=== PATIENT | male | born 1960 | race Caucasian/White ===

== ENCOUNTER 2023-09-01 17:33 | Outpatient (OUT) | payer BC, SELFPAY ==
[2023-09-01] MEDS: FLU VACC QS 23-24(6MS UP)CEL/PF 60 MCG/0.5 ML SYRINGE IM (17:33)
[2023-09-01] MEDS: COVID VAC 23-24(12UP)MODERNA/PF 50 MCG/0.5 ML VIAL IM (18:00)
== END 2023-09-01 17:34 | disposition home or self-care (01) ==
LOC: VACCLI 17:39
PROVIDERS: PCP Internal Medicine
DX: Z23 Encounter for immunization (principal)
CPT/HCPCS: 90674; 91322; G0008

== ENCOUNTER 2023-10-06 13:11 | Outpatient (OUT) | payer BC, SELFPAY ==
[2023-10-06 13:34] LABS: Basophils Absolute Auto 0.1 10^3/uL (0.0-0.1); Eosinophils Absolute Auto 0.2 10^3/uL (0.0-0.7); Eosinophils Percent Auto 2.9 % (0.9-7.0); Hematocrit 42.5 % (42.0-54.0); Hemoglobin 13.7 g/dL (14.0-18.0); Immature Granulocytes Abs Auto 0.01 10^3/uL (0.00-0.03); Immature Granulocytes Pct Auto 0.1 % (0.0-0.5); Lymphocytes Absolute Auto 1.4 10^3/uL (1.2-3.8); Lymphocytes Percent Auto 19.7 % (20.5-60.0); Mean Corpuscular HGB Conc 32.2 g/dL (29.9-35.2); Mean Corpuscular Hemoglobin 27.7 pg (25.9-34.0); Mean Corpuscular Volume 85.9 fL (80.0-94.0); Mean Platelet Volume 11.7 fL (9.5-13.5); Monocytes Absolute Auto 0.5 10^3/uL (0.3-0.8); Monocytes Percent Auto 7.6 % (1.7-12.0); Neutrophils Absolute Auto 4.9 10^3/uL (1.4-6.5); Neutrophils Percent Auto 68.7 % (43.0-75.0); Platelet Count 150 10^3/uL (150-450); Red Blood Count 4.95 10^6/uL (4.70-6.10); Red Cell Distribution Width 15.5 % (11.0-15.0); White Blood Count 7.1 10^3/uL (4.0-11.0)
[2023-10-06 13:54] LABS: Estimated Average Glucose 137 mg/dL; Glycohemoglobin A1C 6.4 % (4.5-6.2)
[2023-10-06 14:04] LABS: Alanine Aminotransferase 29 U/L (16-63); Albumin Globulin Ratio 0.9; Albumin Level 3.5 g/dL (3.4-5.0); Alkaline Phosphatase 59 U/L (46-116); Anion Gap 12.5; Aspartate Amino Transferase 17 U/L (15-37); BUN Creatinine Ratio 15.1; Bilirubin Total 0.5 mg/dL (0.2-1.0); Calcium 8.4 mg/dL (8.5-10.1); Carbon Dioxide 26.7 mmol/L (21.0-32.0); Chloride 106 mmol/L (98-107); Chol HDL Ratio 3.4; Cholesterol 152 mg/dL (<=200); Estimated GFR (African America >60 (>=60); Estimated GFR (Non-African Ame >60 (>=60); Globulin 3.9 g/dL; Glucose 96 mg/dL (74-106); HDL Cholesterol 45 mg/dL (40-60); LDL Cholesterol Calculated 94.2 mg/dL; Potassium 4.2 mmol/L (3.5-5.1); Sodium 141 mmol/L (136-145); Total Protein 7.4 g/dL (6.4-8.2); Triglycerides 64 mg/dL (<=150); VLDL CHOLESTEROL 12.8 mg/dL
[2023-10-06 14:18] LABS: Prostate Specific Antigen Scrn 2.11 ng/mL (<=4.00)
== END 2023-10-06 13:12 | disposition home or self-care (01) ==
PROVIDERS: PCP Internal Medicine; Visit Provider Internal Medicine
DX: Z87.898 Personal history of other specified conditions (principal); Z13.220 Encounter for screening for lipoid disorders; Z86.718 Personal history of other venous thrombosis and embolism; Z12.5 Encounter for screening for malignant neoplasm of prostate
CPT/HCPCS: 36415; 80053; 80061; 83036; 85025; G0103

== ENCOUNTER 2024-06-07 00:35 | Outpatient (RCR) | payer BC, SELFPAY | END 2024-07-06 09:58 | disposition home or self-care (01) | LOC: MM 00:35 | PROVIDERS: PCP Internal Medicine; Visit Provider Internal Medicine | DX: Z51.81 Encounter for therapeutic drug level monitoring (principal); Z79.01 Long term (current) use of anticoagulants; I82.409 Acute embolism and thrombosis of unspecified deep veins of unspecified lower extremity | CPT/HCPCS: 85610 ==

== ENCOUNTER 2024-06-13 16:09 | Outpatient (OUT) | payer BC, SELFPAY ==
--- NOTE | 2024-06-13 | US_ITS ---
The [address] [address] Patient Name: BISHOP RODRIGUEZ MRN: [id number] date: 1960 Sex: M Assigned Patient Location: LAB Current Patient Location: LAB Accession/Order Number: [id number] Exam Date: 06/13/2024 17:07 Report Date: 06/13/2024 18:10 At the request of: JOANNA LAM Procedure: US venous doppler LE BI EXAM: US venous doppler LE BI HISTORY: Lars leg edema R60.0 COMPARISON: None. TECHNIQUE: Multiple sonographic images of the deep veins of both lower extremity is were obtained, supplemented with Doppler. Multiple images were stored for review. FINDINGS: The deep veins of both lower extremities are fairly well-visualized the groin to the mid calf. No filling defect is identified in the deep veins on either side to indicate a thrombus. There is normal compression augmentation of flow bilaterally. US/US venous doppler LE BI IMPRESSION: There is no direct or indirect evidence of deep vein thrombosis in either lower extremity at this time. Electronically authenticated by: KENDALL MCCARTNEY Date: 06/13/2024 18:10
--- OUTSIDE RECORDS SUMMARY | 2024-06-13 16:17 | XMS_ITS | CCD ---
Author Organization [facility] Informat ion [facility] Care Team Providers Care Art Glass Designer Name Role Phone FAWWAD, TOMAS H Attending Unavailable MISC, DR PADILLA Primary Care Unavailable FAWWAD, TOMAS H Admitting Unavailable FAWWAD, TOMAS H Attending Unavailable MISC, DR PADILLA Primary Care Unavailable FAWWAD, TOMAS H Admitting Unavailable FAWWAD, TOMAS H Attending Unavailable MISC, DR PADILLA Primary Care Unavailable FAWWAD, TOMAS H Admitting Unavailable MISC, DR PADILLA Primary Care Unavailable FAWWAD, TOMAS H Admitting Unavailable FAWWAD, TOMAS H Attending Unavailable MISC, DR PADILLA Primary Care Unavailable FAWWAD, TOMAS H Admitting Unavailable FAWWAD, TOMAS H Attending Unavailable MISC, DR PADILLA Primary Care Unavailable FAWWAD, TOMAS H Admitting Unavailable FAWWAD, TOMAS H Attending Unavailable FAWWAD, TOMAS H Admitting Unavailable MISC, DR PADILLA Primary Care Unavailable FAWWAD, TOMAS H Attending Unavailable FAWWAD, TOMAS H Attending Unavailable MISC, DR PADILLA Primary Care Unavailable FAWWAD, TOMAS H Admitting Unavailable HOY .DR MARTIN Attending Unavailable HOY .DR MARTIN Consulting Unavailable HOAntoinette .DR MARTIN Admitting Unavailable MISC, DR PADILLA Primary Care Unavailable MISC, DR PADILLA Primary Care Unavailable FAWWAD, TOMAS H Attending Unavailable FAWWAD, TOMAS H Admitting Unavailable FAWWAD, TOMAS H Attending Unavailable MISC, DR PADILLA Primary Care Unavailable FAWWAD, TOMAS H Admitting Unavailable FAWWAD, TOMAS H Attending Unavailable MISC, DR PADILLA Primary Care Unavailable FAWWAD, TOMAS H Admitting Unavailable FAWWAD, TOMAS Attending Unavailable Problems Problem Classification Problem Date Documented Da te Episodic/Chronic Other aftercare (5 sources) Encounter for therapeutic drug level monitoring; Translations: [ENC THERAPEUTC DRUG LEVL MONITORING] Onset: 03-05-2023 Episodic Other aftercare (1 source) detention (current) use of anticoagulants; Translations: [LONG-TERM CURRNT USE ANTICOAGULANTS] Onset: 04-06-2023 Episodic Phlebitis; thrombophlebitis and thromboembolism (1 source) Chronic embolism and thrombosis of 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; Translations: [CHR EMB THROMB UNS DP VNS LT LW EXT] Onset: 08-09-2022 Chronic Phlebitis; thrombophlebitis and thromboembolism (5 sources) Acute embolism and thrombosis of 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; Translations: [AC EMBO THROMB UNS DP VNS LT LW EXT] Onset: 02-07-2023 Episodic Encounters Encounter Date Encounter Type Care Provider Facility Start: 03-22-2024 End: 03-22-2024 ambulatory SHAIKH XIANG Not Available Start: 03-07-2023 End: 04-06-[address] DOCTOR BRANTLEY Facility:[facility] Start: 02-07-2023 End: 03-04-2023 ambulatory SHAIKH Hayden OTOOLE Facility:H1 Start: 01-05-2023 End: 02-04-2023 ambulatory SHAIKH Hayden OTOOLE Facility:H1 Start: 12-08-2022 End: 01-05-2023 ambulatory SHAIKH Hayden OTOOLE Facility:H1 Start: 11-08-2022 End: 12-08-2022 ambulatory SHAIKH Hayden OTOOLE Facility:H1 Start: 10-07-2022 End: 11-07-2022 ambulatory SHAIKH Hayden OTOOLE Facility:H1 Start: 09-07-2022 End: 10-06-2022 ambulatory SHAIKH Hayden OTOOLE Facility:H1 Start: 08-18-2022 End: 08-18-[address] VERONICA PINEDA . Facility:[facility] Start: 08-08-2022 End: 09-06-[address] DOCTOR BRANTLEY Facility:H1 Start: 07-08-2022 End: 08-07-[address] DOCTOR BRANTLEY Facility:[facility] Start: 06-07-2022 End: 07-07[facility] [facility] Start: 05-07-2022 End: 06-04-2022 ambulatory SHAIKH Hayden OTOOLE Facility:H1 Payers Date Payer Category Payer Unknown 2022 Unknown [id number] 2019 Unknown [id number] 1961 Self-pay [id number] 1961 Self-pay 1960 Unknown [id number] 2.16.84 0.1.927303.3.579.2.593 1960 Unknown [id number] 2.16.84 0.1.446521.3.579.2.593 1958 Unknown [id number] 2.16.84 0.1.485057.3.579.2.593 1958 Unknown [id number] 2.16.84 0.1.260681.3.579.2.593 1958 Unknown [id number] 2.16.84 0.1.770194.3.579.2.593 1958 Unknown [id number] 2.16.84 0.1.844026.3.579.2.593 1958 Unknown [id number] 2.16.84 0.1.058863.3.579.2.593 1958 Unknown [id number] 2.16.84 0.1.720148.3.579.2.593 1958 Unknown [id number] 2.16.84 0.1.832515.3.579.2.593 1958 Unknown [id number] 2.16.84 0.1.318433.3.579.2.593 1958 Unknown [id number] 2.16.84 0.1.621509.3.579.2.593 1958 Unknown [id number] 2.16.84 0.1.732947.3.579.2.1259 Unknown [id number] 2.16.84 0.1.161401.3.579.2.593 Summary Purpose Family History No Family History Records FoundNo Family History Records Found Advance Directives No Advanced Directives Records FoundNo Advanced Directives Records Found Additional Source Comments (unrecognized sect ion and content) No Status Records FoundNo Status Records Found INFORMATION SOURCE (unrecogn ized section and content) DATE CREATED AUTHOR 04/15/2023 [facility] DATE CREATED AUTHOR AUTHOR'S ORGANIZ ATION 03/24/2024 [facility] dical Specialists [facility] FOR RECORDS PERTAINING TO PATIENTS WHO ARE OR HAVE BEEN ENROLLED IN A CHEMICAL DEPENDENCY/SUBSTANCEABUSE PROGRAM, SOME INFORMATION MAY BE OMITTED. This clinical summary was aggregated from multiple sources. Caution should be exercised in using it in the provision of clinical care. This summary normalizes information from multiple sources, and as a consequence, information in this document may materially change the coding, format and clinical context of patient data. In addition, data may be omitted in some cases. CLINICAL DECISIONS SHOULD BE BASED ON THE PRIMARY CLINICAL RECORDS. [facility] [employer] provides no warranty or guarantee of the accuracy or completeness of information in this document.
== END 2024-06-13 16:10 | disposition home or self-care (01) ==
DX: J45.40 Moderate persistent asthma, uncomplicated (principal); I82.402 Acute embolism and thrombosis of 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; E78.5 Hyperlipidemia, unspecified; R73.03 Prediabetes; R60.0 Localized edema
CPT/HCPCS: 36415; 80053; 83036; 85025; 93970

== ENCOUNTER 2024-06-13 16:30 | Outpatient (OUT) | payer BC, SELFPAY ==
--- OUTSIDE RECORDS SUMMARY | 2024-06-13 16:35 | XMS_ITS | CCD ---
Author Organization [facility] Informat ion [facility] Care Team Providers Care Band Straightener Name Role Phone FAWWAD, TOMAS H Attending [...] Onset: 03-05-2023 Episodic Other aftercare (1 source) nursing home (current) use of anticoagulants; Translations: [[facility] CURRNT USE ANTICOAGULANTS] Onset: 04-06-2023 Episodic Phlebitis; [...] Start: 06-07-2022 End: 07-07-[address] [facility] Start: 05-07-2022 End: 06-04-2022 ambulatory SHAIKH Hayden OTOOLE Facility:H1 Payers Date Payer Category Payer Unknown 2022 Unknown [id number] 2019 Unknown [id number] 1961 Self-pay [id number] 1961 Self-pay 1960 Unknown [id number] 2.16.84 0.1.467103.3.579.2.593 1958 Unknown [id number] 2.16.84 0.1.010092.3.579.2.593 1958 Unknown [id number] 2.16.84 0.1.654833.3.579.2.593 1958 Unknown [id number] 2.16.84 0.1.146939.3.579.2.593 1958 Unknown [id number] 2.16.84 0.1.735286.3.579.2.593 1958 Unknown [id number] 2.16.84 0.1.556933.3.579.2.593 1958 Unknown [id number] 2.16.84 0.1.497016.3.579.2.593 1958 Unknown [id number] 2.16.84 0.1.661394.3.579.2.593 1958 Unknown [id number] 2.16.84 0.1.600865.3.579.2.593 1958 Unknown [id number] 2.16.84 0.1.973089.3.579.2.593 1958 Unknown [id number] 2.16.84 0.1.292687.3.579.2.593 1958 Unknown [id number] 2.16.84 0.1.711844.3.579.2.1259 Unknown [id number] 2.16.84 0.1.498187.3.579.2.593 Summary Purpose Family History No Family History Records FoundNo Family History Records Found Advance Directives No Advanced Directives Records FoundNo Advanced Directives Records Found Additional Source Comments (unrecognized sect ion and content) No Status Records FoundNo Status Records Found INFORMATION SOURCE (unrecogn ized section and content) DATE CREATED AUTHOR 04/15/2023 [facility] DATE CREATED AUTHOR AUTHOR'S ORGANIZ ATION 03/24/2024 [facility] dical Specialists [facility] FOR RECORDS PERTAINING TO PATIENTS WHO ARE [...] BE BASED ON THE PRIMARY CLINICAL RECORDS. [facility] [employer] provides no warranty or guarantee of the accuracy or completeness of information in this document.
[2024-06-13 16:43] LABS: Basophils Absolute Auto 0.1 10^3/uL (0.0-0.1); Basophils Percent Auto 0.9 % (0.2-2.0); Eosinophils Absolute Auto 0.3 10^3/uL (0.0-0.7); Eosinophils Percent Auto 3.5 % (0.9-7.0); Hematocrit 41.6 % (42.0-54.0); Hemoglobin 13.1 g/dL (14.0-18.0); Immature Granulocytes Abs Auto 0.01 10^3/uL (0.00-0.03); Immature Granulocytes Pct Auto 0.1 % (0.0-0.5); Lymphocytes Absolute Auto 1.7 10^3/uL (1.2-3.8); Lymphocytes Percent Auto 22.4 % (20.5-60.0); Mean Corpuscular HGB Conc 31.5 g/dL (29.9-35.2); Mean Corpuscular Hemoglobin 26.3 pg (25.9-34.0); Mean Corpuscular Volume 83.5 fL (80.0-94.0); Mean Platelet Volume 13.1 fL (9.5-13.5); Monocytes Absolute Auto 0.6 10^3/uL (0.3-0.8); Monocytes Percent Auto 8.7 % (1.7-12.0); Neutrophils Absolute Auto 4.7 10^3/uL (1.4-6.5); Neutrophils Percent Auto 64.4 % (43.0-75.0); Platelet Count 178 10^3/uL (150-450); Red Blood Count 4.98 10^6/uL (4.70-6.10); Red Cell Distribution Width 16.3 % (11.0-15.0); White Blood Count 7.4 10^3/uL (4.0-11.0)
[2024-06-13 16:58] LABS: Alanine Aminotransferase 23 U/L (16-63); Albumin Globulin Ratio 0.9; Albumin Level 3.4 g/dL (3.4-5.0); Alkaline Phosphatase 66 U/L (46-116); Anion Gap 12.2; Aspartate Amino Transferase 18 U/L (15-37); BUN Creatinine Ratio 15.4; Bilirubin Total 0.5 mg/dL (0.2-1.0); Calcium 8.7 mg/dL (8.5-10.1); Carbon Dioxide 28.1 mmol/L (21.0-32.0); Chloride 103 mmol/L (98-107); Estimated GFR (African America >60 (>=60); Estimated GFR (Non-African Ame >60 (>=60); Glucose 98 mg/dL (74-106); Potassium 4.3 mmol/L (3.5-5.1); Sodium 139 mmol/L (136-145); Total Protein 7.4 g/dL (6.4-8.2)
[2024-06-13 17:06] LABS: Estimated Average Glucose 128 mg/dL; Glycohemoglobin A1C 6.1 % (4.5-6.2)
== END 2024-06-13 16:31 | disposition home or self-care (01) ==
LOC: LAB 16:31
PROVIDERS: Visit Provider Internal Medicine
DX: J45.40 Moderate persistent asthma, uncomplicated (principal); I82.402 Acute embolism and thrombosis of 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; E78.5 Hyperlipidemia, unspecified; R73.03 Prediabetes
CPT/HCPCS: 36415; 80053; 80061; 83036; 85025

== ENCOUNTER 2024-06-15 12:10 | Outpatient (OUT) | payer BC, SELFPAY ==
--- OUTSIDE RECORDS SUMMARY | 2024-06-15 12:21 | XMS_ITS | CCD ---
Author Organization [facility] Informat ion [facility] Care Team Providers Care Molder Apprentice Name Role Phone FAWWAD, TOMAS H Attending [...] source) detention (current) use of anticoagulants; Translations: [SNF CURRNT USE ANTICOAGULANTS] Onset: 04-06-2023 Episodic Phlebitis; [...] Start: 06-07-2022 End: 07-07-[address] [facility] Start: 05-07-2022 End: 06-04-2022 ambulatory SHAIKH Hayden OTOOLE Facility:H1 Payers Date Payer Category Payer Unknown 2022 Unknown [id number] 2019 Unknown [id number] 1961 Self-pay [id number] 1961 Self-pay 1960 Unknown [id number] 2.16.84 0.1.751483.3.579.2.593 1958 Unknown [id number] 2.16.84 0.1.664068.3.579.2.593 1958 Unknown [id number] 2.16.84 0.1.514247.3.579.2.593 1958 Unknown [id number] 2.16.84 0.1.407466.3.579.2.593 1958 Unknown [id number] 2.16.84 0.1.203209.3.579.2.593 1958 Unknown [id number] 2.16.84 0.1.690489.3.579.2.593 1958 Unknown [id number] 2.16.84 0.1.916918.3.579.2.593 1958 Unknown [id number] 2.16.84 0.1.328748.3.579.2.593 1958 Unknown [id number] 2.16.84 0.1.231712.3.579.2.593 1958 Unknown [id number] 2.16.84 0.1.842503.3.579.2.593 1958 Unknown [id number] 2.16.84 0.1.621672.3.579.2.593 1958 Unknown [id number] 2.16.84 0.1.717432.3.579.2.1259 Unknown [id number] 2.16.84 0.1.819103.3.579.2.593 Summary Purpose Family History No Family History Records FoundNo Family History Records Found Advance Directives No Advanced Directives Records FoundNo Advanced Directives Records Found Additional Source Comments (unrecognized sect ion and content) No Status Records FoundNo Status Records Found INFORMATION SOURCE (unrecogn ized section and content) DATE CREATED AUTHOR 04/15/2023 [facility] DATE CREATED AUTHOR AUTHOR'S ORGANIZ ATION 03/24/2024 [facility] dical Specialists [facility] FOR RECORDS PERTAINING TO PATIENTS WHO [...] BE BASED ON THE PRIMARY CLINICAL RECORDS. [facility] [employer] provides no warranty or guarantee of the accuracy or completeness of information in this document.
[2024-06-15 12:53] LABS: Cholesterol 137 mg/dL (<=200); HDL Cholesterol 46 mg/dL (40-60); LDL Cholesterol Calculated 78.4 mg/dL; Triglycerides 63 mg/dL (<=150); VLDL CHOLESTEROL 12.6 mg/dL
== END 2024-06-15 12:11 | disposition home or self-care (01) ==
LOC: LAB 12:11
PROVIDERS: Visit Provider Internal Medicine
DX: J45.40 Moderate persistent asthma, uncomplicated (principal); I82.402 Acute embolism and thrombosis of 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; E78.5 Hyperlipidemia, unspecified; R73.03 Prediabetes
CPT/HCPCS: 36415; 80061

== ENCOUNTER 2024-06-27 11:54 | Outpatient (OUT) | payer BC, SELFPAY ==
--- OUTSIDE RECORDS SUMMARY | 2024-06-27 12:14 | XMS_ITS | CCD ---
Author Organization [facility] Care Team Providers Care Bellows Assembler Name Role Phone FAWWAD, TOMAS H Attending [...] Unavailable FAWWAD, TOMAS H Admitting Unavailable HOY ., DR MARTIN Attending Unavailable HOY ., DR MARTIN Consulting Unavailable HOY ., DR MARTIN Admitting Unavailable MISC, DR PADILLA Primary Care Unavailable MISC, DR PADILLA Primary Care Unavailable FAWWAD, TOMAS H Attending Unavailable FAWWAD, TOMAS H Admitting Unavailable FAWWAD, TOMAS H Attending Unavailable MISC, DR PADILLA Primary Care Unavailable FAWWAD, TOMAS H Admitting Unavailable FAWWAD, TOMAS H Attending Unavailable MISC, DR PADILLA Primary Care Unavailable FAWWAD, TOMAS H Admitting Unavailable FAWWAD, TOMAS Attending Unavailable JOANNA LAM Attending Unavailabl e Problems Problem Classification Problem Date Documented Da te Episodic/Chronic Other aftercare (5 sources) Encounter for therapeutic drug level monitoring; Translations: [ENC THERAPEUTC DRUG LEVL MONITORING] Onset: 03-05-2023 Episodic Other aftercare (1 source) care home (current) use of anticoagulants; Translations: [HALFWAY CURRNT USE ANTICOAGULANTS] Onset: 04-06-2023 Episodic Phlebitis; [...] Date Encounter Type Care Provider Facility Start: 06-13-2024 End: 06-13-2024 ambulatory JOANNA LAM Not Available Start: 03-22-2024 End: 03-22-2024 ambulatory SHAIKH XIANG Not Available Start: 03-07-2023 End: 04-06-[address] DOCTOR BRANTLEY Facility:[facility]1 Start: 02-07-2023 End: 03-04-2023 ambulatory SHAIKH Hayden OTOOLE Facility:H1 Start: 01-05-2023 End: 02-04-2023 ambulatory SHAIKH Hayden OTOOLE Facility:H1 Start: 12-08-2022 End: 01-05-2023 ambulatory H FAABY Facility:H1 Start: 11-08-2022 End: 12-08-2022 ambulatory H XIANG Facility:H1 Start: 10-07-2022 End: 11-07-2022 ambulatory SHAIKH Hayden OTOOLE Facility:H1 Start: 09-07-2022 End: 10-06-2022 ambulatory SHAIKH Hayden OTOOLE Facility:H1 Start: 08-18-2022 End: 08-18-[address] VERONICA PINEDA . Facility:H1 Start: 08-08-2022 End: 09-06-[address] PADILLA MIS Facility:H1 Start: 07-08-2022 End: 08-07-[address] PADILLA MISC Facility:H1 Start: 06-07-2022 End: 07-07-[address] PADILLA MIS Facility:H1 Start: 05-07-2022 End: 06-04-2022 ambulatory SHAIKH Hayden OTOOLE Facility:H1 Payers Date Payer Category Payer Unknown 2022 Unknown [id number] 2019 Unknown [id number] 1961 Self-pay [id number] 1961 Self-pay 1960 Unknown [id number] 2.16.84 0.1.946005.3.579.2.593 1958 Unknown [id number] 2.16.84 0.1.121790.3.579.2.593 1958 Unknown [id number] 2.16.84 0.1.835085.3.579.2.593 1958 Unknown [id number] 2.16.84 0.1.140606.3.579.2.593 1958 Unknown [id number] 2.16.84 0.1.321407.3.579.2.593 1958 Unknown [id number] 2.16.84 0.1.620220.3.579.2.593 1958 Unknown [id number] 2.16.84 0.1.420965.3.579.2.593 1958 Unknown [id number] 2.16.84 0.1.303779.3.579.2.593 1958 Unknown [id number] 2.16.84 0.1.056349.3.579.2.593 1958 Unknown [id number] 2.16.84 0.1.257096.3.579.2.593 1958 Unknown [id number] 2.16.84 0.1.446903.3.579.2.593 1958 Unknown [id number] 2.16.84 0.1.842160.3.579.2.1259 1958 Unknown [id number] 2.16.84 0.1.267160.3.579.2.1259 Unknown [id number] 2.16.84 0.1.700110.3.579.2.593 Summary Purpose Family History No Family History Records FoundNo Family History Records Found Advance Directives No Advanced Directives Records FoundNo Advanced Directives Records Found Additional Source Comments (unrecognized sect ion and content) No Status Records FoundNo Status Records Found INFORMATION SOURCE (unrecogn ized section and content) DATE CREATED AUTHOR 04/15/2023 [facility] DATE CREATED AUTHOR HILDA JUÁREZ 06/16/2024 [facility] dical Specialists [facility] FOR RECORDS PERTAINING TO PATIENTS WHO ARE [...] BE BASED ON THE PRIMARY CLINICAL RECORDS. [facility] [employer] [facility]. provides no warranty or guarantee of the accuracy or completeness of information in this document.
[2024-06-27 12:58] LABS: TSH W/ REFLEX FT4 2.761 uIU/mL (0.358-3.740)
[2024-06-27 13:08] LABS: Percent Iron Saturation 10.9 %
[2024-06-28 05:07] LABS: Transferrin 315 mg/dL (177-329)
== END 2024-06-27 11:55 | disposition home or self-care (01) ==
LOC: LAB 11:55
DX: R60.0 Localized edema (principal); D64.9 Anemia, unspecified
CPT/HCPCS: 36415; 82607; 82728; 83540; 83550; 84443; 84466

== ENCOUNTER 2024-07-04 06:56 | Outpatient (OUT) | payer BC, SELFPAY ==
--- OUTSIDE RECORDS SUMMARY | 2024-07-04 06:59 | XMS_ITS | CCD ---
Author Organization [facility] Care Team Providers Care Dairy Management Specialist Name Role Phone FAWWAD, TOMAS H Attending [...] FAWWAD, TOMAS Attending Unavailable JOANNA LAM Attending Karson e JOANNA LAM Attending Karson e Problems Problem Classification Problem Date Documented Da te Episodic/Chronic Other aftercare (5 sources) Encounter for therapeutic drug level monitoring; Translations: [ENC THERAPEUTC DRUG LEVL MONITORING] Onset: 03-05-2023 Episodic Other aftercare (1 source) halfway (current) use of anticoagulants; Translations: [NURSING HOME CURRNT USE ANTICOAGULANTS] Onset: 04-06-2023 Episodic Phlebitis; [...] Date Encounter Type Care Provider Facility Start: 06-27-2024 End: 06-27-2024 ambulatory JOANNA LAM Not Available Start: 06-13-2024 End: 06-13-2024 ambulatory JOANNA LAM [...] Start: 07-08-2022 End: 08-07-[address] PADILLA MISErin Facility:H1 Start: 06-07-2022 End: 07-07-[address] PADILLA MISErin Facility:H1 Start: 05-07-2022 End: 06-04-2022 ambulatory SHAIKH Hayden OTOOLE Facility:H1 Payers Date Payer Category Payer Unknown 2022 Unknown [id number] 2019 Unknown [id number] 1961 Self-pay [id number] 1961 Self-pay 1960 Unknown [id number] 2.16.84 0.1.401047.3.579.2.593 1958 Unknown [id number] 2.16.84 0.1.486340.3.579.2.593 1958 Unknown [id number] 2.16.84 0.1.044818.3.579.2.593 1958 Unknown [id number] 2.16.84 0.1.461299.3.579.2.593 1958 Unknown [id number] 2.16.84 0.1.031357.3.579.2.593 1958 Unknown [id number] 2.16.84 0.1.626795.3.579.2.593 1958 Unknown [id number] 2.16.84 0.1.932830.3.579.2.593 1958 Unknown [id number] 2.16.84 0.1.922654.3.579.2.593 1958 Unknown [id number] 2.16.84 0.1.170991.3.579.2.593 1958 Unknown [id number] 2.16.84 0.1.994306.3.579.2.593 1958 Unknown [id number] 2.16.84 0.1.572241.3.579.2.593 1958 Unknown [id number] 2.16.84 0.1.231734.3.579.2.1259 1958 Unknown [id number] 2.16.84 0.1.194227.3.579.2.1259 1958 Unknown [id number] 2.16.84 0.1.095710.3.579.2.1259 Unknown [id number] 2.16.84 0.1.501637.3.579.2.593 Summary Purpose Family History No Family History Records FoundNo Family History Records Found Advance Directives No Advanced Directives Records FoundNo Advanced Directives Records Found Additional Source Comments (unrecognized sect ion and content) No Status Records FoundNo Status Records Found INFORMATION SOURCE (unrecogn ized section and content) DATE CREATED AUTHOR 04/15/2023 [facility] DATE CREATED AUTHOR AUTHOR'S HARRY JUÁREZ 06/29/2024 [facility] dical Specialists [facility] FOR RECORDS PERTAINING TO PATIENTS WHO [...] BE BASED ON THE PRIMARY CLINICAL RECORDS. [facility] [employer] provides no warranty or guarantee of the accuracy or completeness of information in this document.
--- NOTE | 2024-07-04 07:00 | CA_ITS ---
Patient Name: BISHOP RODRIGUEZ MR#: [id number] : 1960 Exam Date: 07/04/2024 Ordering Doctor: JOANNA LAM ECHOCARDIOGRAM REPORT PROCEDURE: CA ECHO DOPPLER COMPLETE INDICATIONS: Bilateral lower extremity edema COMPARISON: None. DESCRIPTION: COMPLETE ECHOCARDIOGRAM Real-time transthoracic echocardiography with 2D, M-mode, spectral and color flow Doppler performed. QUALITY: Technical quality was good. LEFT VENTRICLE: Normal chamber size. Mild concentric left ventricular hypertrophy. Global left ventricular systolic function is normal. LV EF: Calculated left ventricular ejection fraction is 63%. DIASTOLIC: Normal diastolic function. ATRIAL SEPTUM: LEFT ATRIUM: Mild dilatation. RIGHT ATRIUM: Mild dilatation. RIGHT VENTRICLE: Borderline size. Normal right ventricular systolic function. TRICUSPID VALVE: Normal mobility and thickness. No stenosis with mild regurgitation. No evidence of pulmonary hypertension. RVSP 25 mmHg MITRAL VALVE: Normal mobility and thickness. No evidence of mitral valve stenosis. There is no mitral annular calcification. Trivial mitral regurgitation. AORTIC VALVE: Normal trileaflet appearance. Mildly calcified aortic valve. Normal leaflet mobility. No evidence of aortic valve stenosis. Trivial aortic regurgitation. AORTIC ROOT: Normal diameter and appearance. Mild dilatation of the ascending aorta measuring 3.8 cm. PULMONIC VALVE: Normal thickness and mobility. No stenosis. Trivial regurgitation. PERICARDIUM: No evidence of pericardial effusion. IVC: Collapses with inspirations. Normal size. PLEURA: CONCLUSION: 1. Mild concentric left ventricular hypertrophy with normal systolic function. LVEF is estimated at 60 to 65%. 2. Borderline right ventricular size with normal systolic function. 3. Mild biatrial dilatation. 4. Normal diastolic function. 5. No significant valvular dysfunction. 6. Normal right-sided pressures. 7. No pericardial effusion. 8. Mildly dilated ascending aorta measuring 3.8 cm. Adult Echocardiography Procedure Report Left Ventricle LVEDD (3.7 - 5.6 cm): 4.40 cm LVESD (2.2 - 4.0 cm): 2.97 cm LVIVS thickness (0.6 - 1.2 cm): 1.31 cm LVPW thickness (0.5 - 1.0 cm): 1.25 cm e': 0.11 m/s E - e': 5.58 LVOT Max Gradient: 4.03 mm[Hg] LVOT Area (cm2): 1.00 m/s Peak Velocity (LVOT): 1.00 m/s Mean Velocity (LVOT): 0.69 m/s LVOT Diameter 2.09 cm Left Ventricular Ejection Fraction: 62.52 % Left Atrium LA Volume Index (2D A2C): 38.51 ml/m2 Left Atrium Systolic Dimension: 4.22 cm Mitral Valve MV E to A Ratio: 1.16 Mitral Valve A-Wave Peak Velocity: 0.52 m/s Mitral Valve E-Wave Peak Velocity: 0.60 m/s Right Ventricle RV Internal Diastolic Dimension: 3.65 cm Aorta AO Root Diam: 3.64 cm Ascending Ao Diam: 3.84 cm Aortic Valve AoV Area (Peak Fred): 2.38 cm2, 2.38 cm2 AoV Area (VTI): 2.43 cm2, 2.43 cm2 Peak Velocity(Antegrade Flow): 1.44 m/s Peak Gradient(Antegrade Flow): 8.30 mm[Hg] Mean Velocity(Antegrade Flow): 0.99 m/s Mean Gradient(Antegrade Flow): 4.51 mm[Hg] Velocity Time Integral: 34.18 cm Tricuspid Valve Peak Velocity (Regurgitant Flow): 2.02 m/s, 2.05 m/s, 2.35 m/s Pulmonic Valve Mean Gradient: 2.38 mm[Hg] Mean Velocity: 0.73 m/s Peak Velocity: 1.05 m/s, 0.99 m/s Peak Gradient: 3.93 mm[Hg], 4.39 mm[Hg] Right Atrium Right Atrium Systolic Pressure: 58.30 ml, 58.30 ml Dictated by: Destin Hall M.D. on 07/04/2024 at 11:05 Approved by: Destin Hall M.D. on 07/04/2024 at 11:08
== END 2024-07-04 06:57 | disposition home or self-care (01) ==
LOC: CARD 06:57
DX: R60.0 Localized edema (principal)
CPT/HCPCS: 93306

== ENCOUNTER 2024-07-09 01:34 | Outpatient (RCR) | payer BC, SELFPAY | END 2024-08-06 23:41 | disposition home or self-care (01) | LOC: MM 01:34 | PROVIDERS: Visit Provider Internal Medicine | DX: Z51.81 Encounter for therapeutic drug level monitoring (principal); Z79.01 Long term (current) use of anticoagulants; I82.409 Acute embolism and thrombosis of unspecified deep veins of unspecified lower extremity ==

== ENCOUNTER 2024-08-07 02:40 | Outpatient (RCR) | payer BC, SELFPAY | END 2024-09-06 23:40 | disposition home or self-care (01) | LOC: MM 02:40 | PROVIDERS: Visit Provider Internal Medicine | DX: Z51.81 Encounter for therapeutic drug level monitoring (principal); Z79.01 Long term (current) use of anticoagulants; I82.409 Acute embolism and thrombosis of unspecified deep veins of unspecified lower extremity ==

== ENCOUNTER 2024-08-30 12:44 | Outpatient (OUT) | payer BC, SELFPAY ==
--- OUTSIDE RECORDS SUMMARY | 2024-08-30 12:57 | XMS_ITS | CCD ---
Author Organization [facility] Care Team Providers Care Mechanical Lead Name Role Phone FAWWAD, TOMAS H Attending [...] FAWWAD, TOMAS Attending Unavailable JOANNA LAM Attending JOANNA Ashford Attending JOANNA Ashford Attending DELORIS Ayala Attending Unavailable Allergies Allergy Classification Reported Allergen(s) Allergy Type Date of Onset Reaction(s) Facility (1 source) HOUSE DUST MITE; Translations: [HOUSE DUST MITE] Propensity to adverse reactions to drug (disorder) 4 [facility] Repository Problems Problem Classification Problem Date Documented Da te Episodic/Chronic Aortic; peripheral; and visceral artery aneurysms (2 sources) Aortic ectasia, unspecified site; Translations: [Aortic ectasia, unspecified site] Onset: 4 Chronic Other aftercare (5 sources) Encounter for therapeutic drug level monitoring; Translations: [ENC THERAPEUTC DRUG LEVL MONITORING] Onset: 3 Episodic Other aftercare (1 source) [facility] (current) use of anticoagulants; Translations: [LONGTERM CURRNT USE ANTICOAGULANTS] Onset: 3 Episodic Other screening for suspected conditions (not mental disorders or infectious disease) (2 sources) Abnormal electrocardiogram [ECG] [EKG]; Translations: [Abnormal electrocardiogram (ECG) (EKG)] Onset: 4 Episodic Phlebitis; thrombophlebitis and thromboembolism (1 source) Chronic embolism and thrombosis of 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; Translations: [CHR EMB THROMB UNS DP VNS LT LW EXT] Onset: 2 Chronic Phlebitis; thrombophlebitis and thromboembolism (5 sources) Acute embolism and thrombosis of 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; Translations: [AC EMBO THROMB UNS DP VNS LT LW EXT] Onset: 3 Episodic Results Test Name Value Interpretation Reference Range [facility] ity Office Visiton 08-22-2024 Follow-up visit [id number] Yefri Monroy 1960 M Date Provider Department Center 08/22/2024 Margie-DELORIS OWENS [facility] Family History Problem Relation Age of Onset No Known Problems Mother Stroke Father Family Status - Relation Status Age at Mother Father Level of Service:40179 [place] OFFICE/OUTPATIENT NEW MODERATE MDM 45 MINUTES Normal [facility] Encounters Encounter Date Encounter Type Care Provider Facility Start: 08-22-2024 End: 08-22-2024 ambulatory EHAB ZULEIKA [facility] Start: 07-26-2024 End: 07-26-2024 ambulatory JOANNA LAM Not Available Start: 06-27-2024 End: 06-27-2024 ambulatory JOANNA LAM Not Available Start: 06-13-2024 End: 06-13-2024 ambulatory JOANNA LAM Not Available Start: 03-22-2024 End: 03-22-2024 ambulatory TOMAS FAWWAD Not Available Start: 03-07-2023 End: 04-06-[address] DOCTOR BRANTLEY Facility:[facility] Start: 02-07-2023 End: 03-04-2023 ambulatory TOMAS H FAWWAD Facility:[facility] Start: 01-05-2023 End: 02-04-2023 ambulatory TOMAS H FAWWAD Facility:[facility] Start: 12-08-2022 End: 01-05-2023 ambulatory TOMAS H FAWWAD Facility:[facility] Start: 11-08-2022 End: 12-08-2022 ambulatory TOMAS H FAWWAD Facility:[facility] Start: 10-07-2022 End: 11-07-2022 ambulatory TOMAS H FAWWAD Facility:[facility] Start: 09-07-2022 End: 10-06-2022 ambulatory TOMAS H FAWWAD Facility:[facility] Start: 08-18-2022 End: 08-18-[address] VERONICA PINEDA . Facility:[facility] Start: 08-08-2022 End: 09-06-[address] DOCTOR BRANTLEY Facility:[facility] Start: 07-08-2022 End: 08-07-[address] DOCTOR BRANTLEY Facility:[facility] Start: 06-07-2022 End: 07-07-[address] DOCTOR BRANTLEY Facility:[facility] Start: 05-07-2022 End: 06-04-2022 ambulatory TOMAS H FAWWAD Facility:[facility] Payers Date Payer Category Payer Unknown 2022 Unknown [id number] 2019 Unknown [id number] 1961 Self-pay [id number] 1961 Self-pay 1960 Unknown [id number] 2.16.84 [id number] 1960 Unknown [id number] 2.16.84 0.1.339084.3.579.2.593 1958 Unknown [id number] 2.16.84 0.1.341042.3.579.2.593 1958 Unknown [id number] 2.16.84 0.1.123868.3.579.2.593 1958 Unknown [id number] 2.16.84 0.1.032314.3.579.2.593 1958 Unknown [id number] 2.16.84 0.1.209913.3.579.2.593 1958 Unknown [id number] 2.16.84 0.1.683478.3.579.2.593 1958 Unknown [id number] 2.16.84 0.1.734888.3.579.2.593 1958 Unknown [id number] 2.16.84 0.1.004832.3.579.2.593 1958 Unknown [id number] 2.16.84 0.1.300082.3.579.2.593 1958 Unknown [id number] 2.16.84 0.1.127375.3.579.2.593 1958 Unknown [id number] 2.16.84 0.1.997823.3.579.2.1259 1958 Unknown [id number] 2.16.84 0.1.742199.3.579.2.1259 1958 Unknown [id number] 2.16.84 0.1.307668.3.579.2.1259 1958 Unknown [id number] 2.16.84 0.1.889974.3.579.2.1259 Unknown [id number] .16. 0.1.262877.3.579.2.593 Progress note 08-22-2024 Note Date & Type Note Facility 08-22-2024 Note [facility] Cardiology Clinic Note Chief Complaint: Pt has no, chest pain, Palpatation, and sob.Pt is here for a referral of abnormal echo. HPI: Yefri Monroy is a 63 y.o. male here for a referral of abnormal echo 63-year-old with a history of multiple episodes of deep venous thrombosis of the left leg, currently on Coumadin, questionable history of hypertension, and dyslipidemia here to establish care He had gone to [place] in the spring and ever since has noticed significant lower extremity edema. Pertinently, this is better in the morning and progressively gets worse during the day. He has not put on any sudden weight recently. He denies abdominal distention or bloating. He denies loss of appetite. He has no exertional chest pain or shortness of breath. He has no orthopnea or paroxysmal tunnel dyspnea. Family history: No history of premature coronary artery disease in any first-degree relatives. Cardiology ROS:Review of Systems Cardiovascular: Positive for leg swelling. All other systems reviewed and are negative. Past Medical History He has no past medical history on file. Surgical History He has no past surgical history on file. Social History He has no history on file for tobacco use, alcohol use, and drug use. Family History No family history on file. Allergies Patient has no allergy information on record. Medications No current outpatient medications on file. Last Recorded Vitals BP 110/82 Pulse 63 Ht 1.727 m (5' 8 ) Wt 110 kg (243 lb) SpO2 95% BMI 36.95 kg/m??? Physical Examination: GENERAL: alert and oriented x3, well developed, in no acute distress. HEAD: atraumatic, normocephalic. EYES: MARSHAL, EOMI. NECK: trachea midline, no JVD present, no carotid bruits present. CARDIAC: S1, S2 present. RRR. No murmur, rubs, or gallops. RESPIRATORY: CTAB, no increased effort of breathing, no rales, rhonchi, or wheezing. ABDOMEN: soft, nontender, nondistended. EXTREMITIES: no lower extremity edema, peripheral pulses are 2+ bilaterally. No rash/skin discoloration present. Evidence of chronic venous insufficiency. NEURO: strength/sensation equal and symmetric in bilateral upper and lower extremities. PSYCH: appropriate mood, affect, and judgement. Assessment: Probable Hypertension Bilateral lower extremity edema - Secondary to chronic venous insufficiency Left ventricular hypertrophy Mildly elevated ascending aorta 3.8 cm Abnormal EKG; right bundle branch block Plan: Reassurance; his ascending aorta is minimally Enlarged; upper limits should be 3.6 cm, his is 3.8. Taking into account his body surface area, this is probably within normal limits. Given left ventricular hypertrophy, we will start him on losartan 25 mg a day A basic metabolic panel will be checked in a week His lower extremity edema appears to be due to local causes in the form of venous insufficiency; would recommend thigh-high, medium compression, bilateral compression stockings. If the swelling is concerning enough, we may refer him to a vascular surgeon to discuss surgical options. I would not recommend initiation of a diuretic solely for the swelling. He is to monitor his heart rate and blood pressure at home and let us know of any significant fluctuations Will repeat an echocardiogram in 1 year or sooner should problems arise; notably, he has never been a smoker and an abdominal ultrasound is not warranted at this time. Return to clinic in 6 months Deloris Owens MD, MPH, FACC, [facility], [facility] Interventional Cardiology Pager Email: [email or web address] Summary Purpose Family History No Family History Records FoundNo Family History Records FoundNo Family History Records Found Advance Directives No Advanced Directives Records FoundNo Advanced Directives Records FoundNo Advanced Directives Records Found Additional Source Comments (unrecognized sect ion and content) No Status Records FoundNo Status Records FoundNo Status Records Found INFORMATION SOURCE (unrecogn ized section and content) DATE CREATED AUTHOR 04/15/2023 [facility] DATE CREATED AUTHOR AUTHOR'S ORGANIZ ATION 07/28/2024 [facility] DATE CREATED AUTHOR AUTHOR'S ORGANIZ ATION 08/24/2024 [facility] FOR RECORDS PERTAINING TO PATIENTS WHO ARE [...] BE BASED ON THE PRIMARY CLINICAL RECORDS. [facility] provides no warranty or guarantee of the accuracy or completeness of information in this document.
[2024-08-30 13:28] LABS: Anion Gap 13.6; BUN Creatinine Ratio 14.8; Calcium 8.6 mg/dL (8.5-10.1); Carbon Dioxide 26.8 mmol/L (21.0-32.0); Chloride 106 mmol/L (98-107); Estimated GFR (African America >60 (>=60 mL/min/1.73m^2); Estimated GFR (Non-African Ame >60 (>=60 mL/min/1.73m^2); Glucose 94 mg/dL (74-106); Potassium 4.4 mmol/L (3.5-5.1); Sodium 142 mmol/L (136-145)
== END 2024-08-30 12:45 | disposition home or self-care (01) ==
LOC: LAB 12:53
PROVIDERS: Visit Provider Internal Medicine Interventional Cardiology
DX: I77.819 Aortic ectasia, unspecified site (principal)
CPT/HCPCS: 36415; 80048

== ENCOUNTER 2024-09-07 12:46 | Outpatient (RCR) | payer BC, SELFPAY | END 2024-10-06 23:59 | disposition home or self-care (01) | LOC: MM 12:46 | PROVIDERS: Visit Provider Internal Medicine | DX: Z51.81 Encounter for therapeutic drug level monitoring (principal); Z79.01 Long term (current) use of anticoagulants; I82.409 Acute embolism and thrombosis of unspecified deep veins of unspecified lower extremity ==

== ENCOUNTER 2024-10-08 05:06 | Outpatient (RCR) | payer BC, SELFPAY | END 2024-11-06 09:20 | disposition home or self-care (01) | LOC: MM 05:06 | PROVIDERS: Visit Provider Internal Medicine | DX: Z51.81 Encounter for therapeutic drug level monitoring (principal); Z79.01 Long term (current) use of anticoagulants ==

== ENCOUNTER 2024-11-08 01:05 | Outpatient (RCR) | payer BC, SELFPAY | END 2024-12-07 14:38 | disposition home or self-care (01) | LOC: MM 01:05 | PROVIDERS: Visit Provider Internal Medicine | DX: Z51.81 Encounter for therapeutic drug level monitoring (principal); Z79.01 Long term (current) use of anticoagulants ==

== ENCOUNTER 2024-12-10 02:24 | Outpatient (RCR) | payer BC, SELFPAY | END 2025-01-04 13:39 | disposition home or self-care (01) | LOC: MM 02:24 | PROVIDERS: Visit Provider Internal Medicine | DX: Z51.81 Encounter for therapeutic drug level monitoring (principal); Z79.01 Long term (current) use of anticoagulants ==

== ENCOUNTER 2025-01-05 12:35 | Outpatient (RCR) | payer BC, SELFPAY | END 2025-02-01 12:37 | disposition home or self-care (01) | LOC: MM 12:35 | PROVIDERS: Visit Provider Internal Medicine | DX: Z51.81 Encounter for therapeutic drug level monitoring (principal); Z79.01 Long term (current) use of anticoagulants ==

== ENCOUNTER 2025-02-05 05:40 | Outpatient (RCR) | payer OTHER, SELFPAY | END 2025-03-06 16:14 | disposition home or self-care (01) | LOC: MM 05:40 | PROVIDERS: Visit Provider Internal Medicine | DX: Z51.81 Encounter for therapeutic drug level monitoring (principal); Z79.01 Long term (current) use of anticoagulants ==

== ENCOUNTER 2025-03-07 04:45 | Outpatient (RCR) | payer OTHER, SELFPAY | END 2025-04-05 15:23 | disposition home or self-care (01) | LOC: MM 04:45 | PROVIDERS: Visit Provider Internal Medicine | DX: Z51.81 Encounter for therapeutic drug level monitoring (principal); Z79.01 Long term (current) use of anticoagulants ==

== ENCOUNTER 2025-04-07 08:08 | Outpatient (RCR) | payer OTHER, SELFPAY | END 2025-05-02 14:56 | disposition home or self-care (01) | LOC: MM 08:08 | PROVIDERS: Visit Provider Internal Medicine | DX: Z51.81 Encounter for therapeutic drug level monitoring (principal); Z79.01 Long term (current) use of anticoagulants ==

== ENCOUNTER 2025-05-07 02:30 | Outpatient (RCR) | payer OTHER, SELFPAY | END 2025-06-06 16:56 | disposition home or self-care (01) | LOC: MM 02:30 | PROVIDERS: Visit Provider Internal Medicine | DX: Z51.81 Encounter for therapeutic drug level monitoring (principal); Z79.01 Long term (current) use of anticoagulants ==

== ENCOUNTER 2025-06-07 00:18 | Outpatient (RCR) | payer OTHER, SELFPAY | END 2025-07-04 12:47 | disposition home or self-care (01) | LOC: MM 00:18 | PROVIDERS: PCP Family Medicine; Visit Provider Internal Medicine | DX: Z51.81 Encounter for therapeutic drug level monitoring (principal); Z79.01 Long term (current) use of anticoagulants ==

== ENCOUNTER 2025-06-21 12:14 | Outpatient (OUT) | payer OTHER, SELFPAY ==
--- OUTSIDE RECORDS SUMMARY | 2025-06-21 12:16 | XMS_ITS | Encounter Summary ---
Author Organization [facility] Address [address] [place] [address] Care Team Providers Care Communications Instructor Name Role Phone Shaikh RICKY Gibson Unavailable [phone] Thiago Casas MD Primary Care Provider [phone] Anai Dixon NP Unavailable [phone] Anai Dixon EXTRUSION TECHNICIAN Unavailable [phone] Encounter Details Date Type Department Care Team (Late st Contact Info) Description 08/23/2024 Orders Only [facility] [address] [place] [address] Anai Dixon NP Social History Tobacco Use Types Packs/Day Years Used Date Smoking Tobacco: Never Passive Smoke Exposure: Never Smokeless Tobacco: Never Alcohol Use Standard Drinks/Week Comments Yes 0 (1 standard drink = 0.6 oz pur e alcohol) OCCASSIONALLY B1300 Health Literacy Answer Date Recor ded How often do you need to hav e someone help you when you read instructions, pamphlets, or other written material from your doctor or pharmacy? Never 06/13/2024 Social Connection and Isolat ion Panel [NHANES] Answer Date Recorded In a typical week, how many times do you talk on the phone with family, friends, or neighbors? Three times a week 06/13/2024 How often do you get togethe r with friends or relatives? Once a week 06/13/2024 How often do you attend chur ch or spiritism services? More than 4 times per year 06/13/2024 Do you belong to any clubs o r organizations such as rastafari groups, unions, fraternal or athletic groups, or school groups? No 06/13/2024 How often do you attend meet ings of the clubs or organizations you belong to? Never 06/13/2024 Are you , , di vorced, , never , or living with a partner? 06/13/2024 AUDIT-C Answer Date Recorded Q1: How often do you have a drink containing alc ohol? Monthly or less 06/13/2024 Q2: How many drinks containi ng alcohol do you have on a typical day when you are drinking? 1 or 2 06/13/2024 Q3: How often do you have si x or more drinks on one occasion? Never 06/13/2024 Overall Financial Resource Strain (CARDIA) Answe r Date Recorded How hard is it for you to pa y for the very basics like food, housing, medical care, and heating? Not hard at all 06/13/2024 PHQ-2 Answer Date Recorded Patient Health Questionnaire-2 Score 0 07/26/2024 [facility] - Occupational Stress Questionnaire Answer Date Recorded Do you feel stress - tense, restless, nervous, or anxious, or unable to sleep at night because your mind is troubled all the time - these days? Not at all 06/13/2024 Exercise Vital Sign Answer Date Recorde d On average, how many days pe r week do you engage in moderate to strenuous exercise (like a brisk walk)? 3 days 06/13/2024 On average, how many minutes do you engage in exercise at this level? 10 min 06/13/2024 Hunger Vital Sign Answer Date Recorded Within the past 12 months, y ou worried that your food would run out before you got the money to buy more. Never true 06/13/20 24 Within the past 12 months, t he food you bought just didn't last and you didn't have money to get more. Never true 06/13/2024 PRAPARE - Transportation Answer Date Re corded In the past 12 months, has l ack of transportation kept you from medical appointments or from getting medications? No 05/2024 In the past 12 months, has l ack of transportation kept you from meetings, work, or from getting things needed for daily living? No 06/13/2024 Housing Stability Vital Sign Answer Miki e Recorded In the last 12 months, was t here a time when you were not able to pay the mortgage or rent on time? No 06/13/2024 Number of Times Moved in the Last Year Not on fi le 06/13/2024 At any time in the past 12 m [facility], were you homeless or living in a assisted (including now)? No 06/13/2024 Sex and Gender Information Value Date Recorded Sex Assigned at Not on file Legal Sex Male 9:46 PM EDT Gender Identity Not on file Sexual Orientation Not on file documented as of this encounter Plan of Treatment Upcoming Encounters Date Type Department Care Team (Late st Contact Info) Description 07/26/2025 10:30 AM EDT Office Visit [facility] [address] [place] [phone] Thiago Casas MD [address] [place] [address] documented as of this encounter Procedures Procedure Name Priority Date/Time Associated Diagnosis Comments ELECTROCARDIOGRAM REPORT Routine 024 7:55 AM EDT documented in this encounter Results * Electrocardiogram Report (08/22/2024 7:55 AM EDT) Anai Dixon EXTRUSION TECHNICIAN IN CLINIC/BEDSIDE ORDERA BLES Final Result documented in this encounter Visit Diagnoses Not on filedocumented in this encounter Care Teams Communications Instructor Relationship Specialty Start Date End Date Shaikh Gibson MD [address] [place] [address] PCP - [employer] 11/07/2309/06 Thiago Casas MD [address] [place] [address] PCP - General Family Medicine 06/11/24 Anai Dixon NP PCP - [facility] 09/07/2411/06 Anai Dixon NP [address] [place] [address] Nurse Practitioner Family Medicine 06/11/24 01/23/25 documented as of this encounter
--- OUTSIDE RECORDS SUMMARY | 2025-06-21 12:16 | XMS_ITS | Encounter Summary ---
Author Organization [facility] Address [address] [place] [address] Care Team Providers Care Mandrel Cleaner Name Role Phone Thaigo Casas MD Primary Care Provider [phone] Encounter Details Date Type Department Care Team (Late st Contact Info) Description 06/17/2025 Telephone [facility] [address] [place] [address] Thiago Casas MD [address] [place] [address] Social History Tobacco Use Types Packs/Day Years [...] week 06/13/2024 How often do you attend [facility] or anabaptist services? More than 4 times per year 06/13/2024 Do you belong to any clubs o r organizations such as baptist groups, unions, fraternal or athletic groups, or [...] Recorded Patient Health Questionnaire-2 Score 0 07/26/2024 [facility] - Occupational Stress Questionnaire Answer Date [...] any time in the past 12 m [facility], were you homeless or living in a long term (including now)? No 06/13/2024 Sex and Gender Information Value Date Recorded Sex Assigned at Not on file Legal Sex Male 9:46 PM EDT Gender Identity Not on file Sexual Orientation Not on file documented as of this encounter Miscellaneous Notes * Telephone Encounter - Thiago Casas MD - 06/17/2025 8:48 PM EDT I will keep, I see his * Telephone Encounter - rOa Walker - 06/17/2025 4:34 PM EDT Are you keeping this patient as your own, or is he going to Dr. Alvarez. Looks like you have seen him once since Anai left. JN documented in this encounter Plan of Treatment Upcoming Encounters Date Type Department Care Team (Late st Contact Info) Description 07/26/2025 10:30 AM EDT Office Visit [facility] [address] [place] [phone] Thiago Casas MD [address] [place] [address] documented as of this encounter Visit Diagnoses Not on filedocumented in this encounter Care Teams Mandrel Cleaner Relationship Specialty Start Date End Date Thiago Casas MD [address] [place] [address] PCP - General Family Medicine 06/11/24 documented as of this encounter
--- OUTSIDE RECORDS SUMMARY | 2025-06-21 12:16 | XMS_ITS | Patient Health Record ---
Author Organization [facility] [place] Address [address] [place] [address] Care Team Providers Care Toll Service Observer Name Role Phone Conner Blum Primary Care Provider Allergies No Known Allergies Reason For Referral No Information Medications Medication SIG (Take, Route, Frequency, Duration) Notes Start Date End Date Status Miscellaneous - - - - for 90 days please dispens e cpap nasal pillow g47.33 12/26/2020 Active Miscellaneous - - - - compression socks Active Warfarin Sodium 10 MG Take 1 tablet by mouth every day for 90 Active Rosuvastatin Calcium 10 MG TAKE 1 TABLET BY MOUTH EVERY DAY for 90 Active Advair Diskus 500-50 MCG/DOSE 1 puff Inhalation Daily for 90 days Active Omeprazole 20 MG Take 1 capsule by mouth every day Daily for 90 days Active CPAP Supplies -- Mask and Tubing daily please dispense all needed cpap supplies 02/05/2021 Active CPAP - use as directed daily please dispense cpap machine 02/05/2021 Active Betamethasone Dipropionate 0.05 % APPLY TOPICALLY TO THE AFFECTED AREA(S) EVERY DAY for 30 Active Albuterol Sulfate HFA 108 (90 Base) MCG/ACT 2 puffs as needed Inhalation every 4 hrs for 90 days PRN Active Westcort 0.2 % 1 application Externally BID for 30 days 04/08/2022 Active Fluticasone Propionate 50 MCG/ACT Use 1 spray in each nostril once a day Active Sildenafil Citrate 20 MG TAKE 1 TO 5 TABLETS BY MOUTH 1 TO 4 HOURS PRIOR TO INTERCOURSE for 30 days Active Immunizations Vaccine Route Administration Date Status Comme nts Flu, (18597) -historic- 3-valent, Split, 3 yrs & older, for IM use Unknown 07/30/2014 Administered Flu, Fluzone (2041-5009) (98088) 3 yrs+, multi-dose vial Unknown 08/11/2022 Administered Flu, Fluzone (3919-6392) (60799) 3 yrs+, multi-dose vial Unknown 08/16/2022 Administered Flu, Fluzone (61262) 3 yrs+, multi-dose vial (7778-6517) Unknown 08/20/2016 Administered Flu, Fluzone (05244) 3 yrs+, multi-dose vial (3393-9656) IM Intramuscular 06/22/2017 Administered Flu, Fluzone (51939) 3 yrs+, multi-dose vial (0062-3826) Unknown 08/16/2019 Administered given at work Flu, Fluzone (23190) 3 yrs+, multi-dose vial () Unknown 08/27/2021 Administered SARS-COV-2 (COVID 19 Pfizer 30mcg/0.3mL) Unknown 01/12/2021 Administered SARS-COV-2 (COVID 19 Pfizer 30mcg/0.3mL) Unknown 02/03/2021 Administered SARS-COV-2 (COVID 19 Pfizer Booster 0.3mL) Unknown 09/08/2021 [facility]ered [facility] Social History Tobacco Use: Social History Observation Description Date Details (start date - stop date) Never Smoker NA - NA Tobacco Use/Smoking Question Answer Notes Patient is a nonsmoker Alcohol Screen (Audit-C) Question Answer Notes Did you have a drink contain ing alcohol in the past year? Yes How often did you have 6 or more drinks on one occasion in the past year? Never (0 point) How many drinks did you have on a typical day when you were drinking in the past year? 1 or 2 drinks (0 point) How often did you have a dri nk containing alcohol in the past year? Monthly (2 points) Points 2 Interpretation Negative Section Notes: ;exposure to dogs in the [place] e and in the bedrooms, carpets in the bedrooms only ;exposure to dogs in the [place] and in the bedrooms, carpets in the bedrooms only ;exposure to dogs in the [place] and in the bedrooms, carpets in the bedrooms only ;exposure to dogs in the [place] and in the bedrooms, carpets in the bedrooms only ;exposure to dogs in the [place] and in the bedrooms, carpets in the bedrooms only ;exposure to dogs in the [place] and in the bedrooms, carpets in the bedrooms only ;exposure to dogs in the [place] e and in the bedrooms, carpets in the bedrooms only ;exposure to dogs in the [place] and in the bedrooms, carpets in the bedrooms only ;exposure to dogs in the [place] and in the bedrooms, carpets in the bedrooms only ;exposure to dogs in the [place] and in the bedrooms, carpets in the bedrooms only ;exposure to dogs in the [place] and in the bedrooms, carpets in the bedrooms only ;exposure to dogs in the [place] and in the bedrooms, carpets in the bedrooms only ;exposure to dogs in the [place] and in the bedrooms, carpets in the bedrooms only ;exposure to dogs in the [place] and in the bedrooms, carpets in the bedrooms only ;exposure to dogs in the [place] and in the bedrooms, carpets in the bedrooms only Problems Problem Type SNOMED Code ICD Code Onset Dates Problem Status W/U Status Risk Notes Problem 123651151 Mixed hyperlipidemia (E78.2) Active confirmed Problem Obstructive slee p apnea (G47.33) Active confirmed Problem 232964310 Gastroesophageal reflux disease, esophagitis presence not specified (K21.9) Active confirmed Problem 958696169 Moderate persist ent asthma without complication (J45.40) Active confirmed Problem 225333697 Anticoagulation adequate (Z79.01) Active confirmed Problem 14067493 Allergic rhiniti s, cause unspecified (J30.9) Active confirmed Problem 119681392289031 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) Active confirmed Problem 431825454 Borderline diabe sofiya (R73.03) Active confirmed Plan Of Treatment Pending Test Test Name Order Date Spirometry (Pre and Post BD) Performed 0 07/13/2018 Surgical Pathology ([facility]) 09/21/2017 Insurance Providers Payer Name Payer Address Payer Phone Subscriber Number Group Number Insured Name Patient Relationship to Insured Coverage Start Date Coverage End Date ESTEFANIA SUERO [address] [place] [phone] [id number] Yefri Huizar Self - patient is the insured 3 Medical (General) History Medical History History ICD Code Moderate Persistent Asthma ( previous Dr. Quinones pt): 07/2018 Spirometry - small airway obstruction without bronchodilator response, normal otherwise; Rx Advair 500/50 one puff daily; ACT score 24. GERD: on omeprazole since 8 GI consultation and upper GI endoscopy by Dr. Yuniel Price colored lower esophagus, suspicious of Lemus's Allergic Rhinitis: History or recurrent DVT Anticoagulation MARINA Torn ACL Surgical History Surgery Date(Month/Year) arthroscopy of the knee - bilat tonsillectomy deviated septum repair Vasectomy ligament repair ankle-right hernia repair 08-05-14 Left i nguinal hernia repair with mesh Dr Camejo
--- OUTSIDE RECORDS SUMMARY | 2025-06-21 12:16 | XMS_ITS | Clinical Summary ---
Author Organization [employer] Address [id number] [address] [place] [address] Care Team Providers Care Commercial Fisherman Name Role Phone Ramses Bundy MD Primary Care Provider [phone] Allergies No known active allergies Medications albuterol (PROVENTIL HFA;VENTOLIN HFA) 90 mcg/actuation inhaler Inhale 1 puff daily. Asthma Active fluticasone-salm eterol (ADVAIR) 500-50 mcg/dose DISKUSIndication s:maintenance therapy for asthma Inhale 1 puff daily. Active enoxaparin (LOVENOX) 40 mg/0.4 mL syringeIndicatio ns:deep vein thrombosis prevention Inject 40 mg under the skin daily. To start 09/19/17 Active omeprazole (PriLOSEC) 20 mg capsuleIndicatio ns:gastroesophag eal reflux disease Take 20 mg by mouth daily. Active Family History Medical History Relation Name Comments Stroke Father Throat cancer Maternal Grandfather smoker Heart attack Maternal Grandmother Heart attack Paternal Grandfather Stroke Paternal Grandmother Relation Name Status Comments Father Maternal Grandfather Maternal Grandmother Mother Alive Paternal Grandfather Paternal Grandmother Social History Tobacco Use Types Packs/Day Years Used Date Smoking Tobacco: Never Smokeless Tobacco: Never Alcohol Use Standard Drinks/Week Comments Yes 0 (1 standard drink = 0.6 oz pur e alcohol) occasionally beer Childcare Answer Date Recorded Childcare Unknown 04/17/2019 Employment Answer Date Recorded Employment Unknown 04/17/2019 Purpose - Life Answer Date Recorded Purpose and direction in life Unknown Sex and Gender Information Value Date Recorded Sex Assigned at Not on file Legal Sex Male 8:51 PM EDT Gender Identity Not on file Sexual Orientation Not on file Last Filed Vital Signs Vital Sign Reading Time Taken Comments Blood Pressure 121/74 09/21/2017 8:05 AM EST Pulse 60 09/21/2017 7:58 AM EST Temperature 36.4 C (97.5 F) 09/21/2017 8:05 AM EST Respiratory Rate 14 09/21/2017 7:58 AM EST Oxygen Saturation 99% 09/21/2017 8:05 AM EST Inhaled Oxygen Concentration - - Weight 106.6 kg (235 lb 0.2 oz) 09/21/2017 6:51 AM EST Height 174 cm (5' 8.5 ) 09/21/2017 6:51 AM EST Body Mass Index 35.21 09/21/2017 6:51 AM EST Plan of Treatment Not on file Medical Devices Not on file Insurance [employer] Care Teams Commercial Fisherman Relationship Specialty Start Date End Date Ramses Bundy MD [address] [place] [address], [address] [address] PCP - General 06/03/14
--- OUTSIDE RECORDS SUMMARY | 2025-06-21 12:16 | XMS_ITS | Encounter Summary ---
Author Organization [facility] Address [address], [address] [place] [address] Care Team Providers Care Senior Marketing Analyst Name Role Phone Ramses Bundy MD Primary Care Provider [phone] Reason for Visit * Reason Comments Other Encounter Details Date Type Department Care Team (Late st Contact Info) Description 02/04/2014 Refill [facility] [address] [place] [address] Mildred Cole, GRAPHIC DESIGNER - PERINATAL TECH [address] [place] [phone] Other Social History Tobacco Use Types Packs/Day Years Used Date Smoking Tobacco: Never Assessed Sex and Gender Information Value Date Recorded Sex Assigned at Not on file Legal Sex Male 3:56 PM EST Gender Identity Not on file Sexual Orientation Not on file documented as of this encounter Plan of Treatment Not on file documented as of this encounter Visit Diagnoses Not on filedocumented in this encounter Care Teams Senior Marketing Analyst Relationship Specialty Start Date End Date Ramses Bundy MD [address] [place] [address] PCP - General 06/07/15 documented as of this encounter
--- OUTSIDE RECORDS SUMMARY | 2025-06-21 12:16 | XMS_ITS | Encounter Summary ---
Author Organization [facility] Address [address], [address] [place] [address] Care Team Providers Care Toppiece Chopper Name Role Phone Ramses Bundy MD Primary Care Provider [phone] Reason for Visit * Reason Comments Other Encounter Details Date Type Department Care Team (Late st Contact Info) Description 07/17/2014 Refill [facility] [address] [place] [address] Mildred Cole, AUTOMOTIVE GENERATOR REPAIRER - PROFESSOR OF SPECIAL EDUCATION [address] [place] [address] Other Social History Tobacco Use Types Packs/Day [...] on filedocumented in this encounter Care Teams Toppiece Chopper Relationship Specialty Start Date End Date Ramses Bundy MD [address] [place] [address] PCP - General 06/07/15 documented as of this encounter
--- OUTSIDE RECORDS SUMMARY | 2025-06-21 12:16 | XMS_ITS | Encounter Summary ---
Author Organization [facility] Address [address] [place] [address] Care Team Providers Care Physical Education Specialist Name Role Phone Shaikh RICKY Gibson Primary Care Provider [phone] Shaikh RICKY Gibson Unavailable [phone] Thiago Casas MD Primary Care Provider Anai Dixon WAITER/WAITRESS FORMAL Unavailable Anai Dixon WAITER/WAITRESS FORMAL Unavailable [phone] Encounter Details Date Type Department Care Team (Late st Contact Info) Description 10/13/2023 Orders Only [facility] [address] [place] [address] Shaikh Gibson MD [address] [place] [address] Social History Tobacco Use Types Packs/Day Years [...] Office Visit [facility] [address] [place] [address] Thiago Casas MD [address] [place] [address] documented as of this encounter Procedures Procedure Name Priority Date/Time Associated Diagnosis Comments MISCELLANEOUS LAB TEST Routine 10/06/2023 1:41 PM EST documented in this encounter Results * - Miscellaneous Test (10/06/2023 1:41 PM EST) Shaikh Paige GARCÍA LAB BLOOD ORDERABLES Final Resu lt documented in this encounter Visit Diagnoses Not on filedocumented in this encounter Care Teams Physical Education Specialist Relationship Specialty Start Date End Date Shaikh Gibson MD PCP - General Internal Medicine 09/07/23 06/10/24 Shaikh Gibson MD [address] [place] [phone] PCP - [place] [employer] 11/07/2309/06 Thiago Casas MD [address] [place] [address] PCP - General Family Medicine 06/11/24 Anai Dixon NP PCP - [place] [employer] 09/07/2411/06 Anai Dixon NP [address] [place] [phone] Nurse Practitioner Family Medicine 06/11/24 01/23/25 documented as of this encounter
--- OUTSIDE RECORDS SUMMARY | 2025-06-21 12:16 | XMS_ITS | Encounter Summary ---
Author Organization [facility] Address [address] [place] [address] Care Team Providers Care Apron Trimmer Name Role Phone Shaikh RICKY Gibson Unavailable [phone] Thiago Casas MD Primary Care Provider [phone] Anai Lam SUBWAY CAR REPAIRER Unavailable [phone] Anai Lam SUBWAY CAR REPAIRER Unavailable [phone] Encounter Details Date Type Department Care Team (Late st Contact Info) Description 06/13/2024 Clinisync Result Encounter [facility] External Department Unsolicited Anai Lam NP Social History Tobacco Use Types Packs/Day [...] week 06/13/2024 How often do you attend [facility] or hoahaoism services? More than 4 times per year 06/13/2024 Do you belong to any clubs o r organizations such as zoroastrianism groups, unions, fraternal or athletic groups, or [...] Date Recorded Patient Health Questionnaire-2 Score 0 06/13/2024 [facility] - Occupational Stress Questionnaire Answer Date Recorded [...] any time in the past 12 m [facility], were you homeless or living in a intermediate (including now)? No 06/13/2024 Sex and Gender Information Value Date Recorded Sex Assigned at Not on file Legal Sex Male 9:46 PM EDT Gender Identity Not on file Sexual Orientation Not on file documented as of this encounter Functional Status * Audit-C Score Answer Date of Assessment Author 1 06/13/2024 8:11 AM EDT Lorene, Generic * Q1: How often do you have a drink containing alcohol? Answer Date of Assessment Author Monthly or less 06/13/2024 8:11 AM EDT Lorene, Generic * Q2: How many drinks containing alcohol do you have on a typical day when you are drinking? Answer Date of Assessment Author 1 or 2 06/13/2024 8:11 AM EDT Myclinh, Generic * Q3: How often do you have six or more drinks on one occasion? Answer Date of Assessment Author Never 06/13/2024 8:11 AM EDT Lorene, Generic * Over the past 2 weeks, how often have you been bothered by any of the following problems? Question Answer Date of Assessment Author Little interest or pleasure in doing things Not at all 06/13/2024 3:19 PM EDT Christine Gabriel M A Feeling down, depressed, or hopeless Not at all 06/13/2024 3:19 PM EDT Christine Gabriel M A Patient Health Questionnaire -2 Score 0 06/13/2024 3:19 PM EDT Christine Gabriel M A documented as of this encounter Plan of Treatment Upcoming Encounters Date Type Department Care Team (Late st Contact Info) Description 07/26/2025 10:30 AM EDT Office Visit [facility] [address] [place] [address] Thiago Casas MD [address] [place] [address] documented as of this encounter Procedures Procedure Name Priority Date/Time Associated Diagnosis Comments US LEG LEFT VENOUS + DOPPLER 06/13/2024 6:10 PM EDT documented in this encounter Results * US LEG LEFT VENOUS + DOPPLER (06/13/2024 6:10 PM EDT) Anatomical Region Laterality Modality Radiographic Monica ging 06/13/2024 6:10 PM EDT Narrative 06/13/2024 6:12 PM EDT [address] [address] Ultrasound Report Signed Patient: YEFRI MONROY MR#: [id number] : 1960 Acct:[id number] Age/Sex: 63 / M ADM Date: 06/13/24 Loc: LAB Attending Dr: ANAI LAM Ordering Physician: ANAI LAM Date of Service: 06/13/24 Procedure(s): US venous doppler LE BI Accession Number(s): [id number] cc: ANAI LAM [address] [address] Patient Name: YEFRI MONROY MRN: [id number] date: 1960 Sex: M Assigned Patient Location: LAB Current Patient Location: LAB Accession/Order Number: [id number] Exam Date: 06/13/2024 17:07 Report Date: 06/13/2024 18:10 At the request of: ANAI LAM Procedure: US venous doppler LE BI EXAM: US venous doppler LE BI HISTORY: Lars leg edema R60.0 COMPARISON: None. TECHNIQUE: Multiple sonographic images of the deep veins of both lower extremity is were obtained, supplemented with Doppler. Multiple images were stored for review. FINDINGS: The deep veins of both lower extremities are fairly well-visualized the groin to the mid calf. No filling defect is identified in the deep veins on either side to indicate a thrombus. There is normal compression augmentation of flow bilaterally. US/US venous doppler LE BI IMPRESSION: There is no direct or indirect evidence of deep vein thrombosis in either lower extremity at this time. Electronically authenticated by: KENDALL KING Date: 06/13/2024 18:10 Dictated By: Kendall King M.D. Signed By: 06/13/241811 DD/ 09 TD/TT: Import Specialist: Procedure Note Radiology, Radiologist, MD - 06/13/2024 [place] [address] Ultrasound Report Signed Patient: YEFRI MONROY TMR#: [id number] : 1960cct:[id number] Age/Sex: 63 / MADM Date: 06/13/24 Loc: LAB Attending Dr: ANAI LAM Ordering Physician: ANAI LAM Date of Service: 06/13/24 Procedure(s): US venous doppler LE BI Accession Number(s): [id number] cc: ANAI LAM [facility] [place] [id number] Patient Name: YEFRI MONROY MRN: [id number] date: 1960 Sex: M Assigned Patient Location: LAB Current Patient Location: LAB Accession/Order Number: [id number] Exam Date: 06/13/2024 17:07 Report Date: 06/13/2024 18:10 At the request of: ANAI LAM Procedure: US venous doppler LE BI EXAM: US venous doppler LE BI HISTORY: Lars leg edema R60.0 COMPARISON: None. TECHNIQUE: Multiple sonographic images of the deep veins of both lower extremity is were obtained, supplemented with Doppler. Multiple imageswere stored for review. FINDINGS: The deep veins of both lower extremities are fairlywell-visualized the groin to the mid calf. No filling defect is identified in the deepveins on either side to indicate a thrombus. There is normal compressionaugmentation of flow bilaterally. US/US venous doppler LE BI IMPRESSION: There is no direct or indirect evidence of deep vein thrombosis in either lower extremity at this time. Electronically authenticated by: KENDALL KING Date: 06/13/2024 18:10 Dictated By: Kendall King M.D. Signed By:06/13/241811 DD/ 09 TD/TT: Import Specialist: us Anai Lam SUBWAY CAR REPAIRER IMG XR PROCEDURES Final Result documented in this encounter Visit Diagnoses Not on filedocumented in this encounter Care Teams Apron Trimmer Relationship Specialty Start Date End Date Shaikh Gibson MD [address] [place] [address] PCP - [place] [employer] 11/07/2309/06 Thiago Casas MD [address] [place] [address] PCP - General Family Medicine 06/11/24 Anai Lam NP PCP - [place] [employer] 09/07/2411/06 Anai Lam NP [address] [place] [address] Nurse Practitioner Family Medicine 06/11/24 01/23/25 documented as of this encounter
--- OUTSIDE RECORDS SUMMARY | 2025-06-21 12:16 | XMS_ITS | Encounter Summary ---
Author Organization [facility] Address [address], [address] [place] [address] Care Team Providers Care Hat Finishing Materials Preparer Name Role Phone Ramses Bundy MD Primary Care Provider [phone] Reason for Visit * Reason Comments Other Encounter Details Date Type Department Care Team (Late st Contact Info) Description 09/03/2014 Refill [facility] [address] [place] [address] Mildred Cole, INDEX CLERK - ASSISTANT CHIEF NURSING OFFICER [address] [place] [phone] Other Social History Tobacco Use Types Packs/Day [...] on filedocumented in this encounter Care Teams Hat Finishing Materials Preparer Relationship Specialty Start Date End Date Ramses Bundy MD [address] [place] [address] PCP - General 06/07/15 documented as of this encounter
--- OUTSIDE RECORDS SUMMARY | 2025-06-21 12:16 | XMS_ITS | Encounter Summary ---
Author Organization [facility] Address [address] [place] [address] Care Team Providers Care Credit Relationship Manager Name Role Phone Thiago Casas MD Primary Care Provider [phone] Encounter Details Date Type Department Care Team (Late st Contact Info) Description 05/07/2025 Abstract [facility] [address] [place] [address] Thiago Casas MD [address] [place] [address] Social History Tobacco Use Types Packs/Day Years [...] week 06/13/2024 How often do you attend [facility] or zoroastrian services? More than 4 times per year 06/13/2024 Do you belong to any clubs o r organizations such as buddhism groups, unions, fraternal or athletic groups, or [...] Recorded Patient Health Questionnaire-2 Score 0 07/26/2024 [facility] - [facility]ational [facility] Questionnaire Answer Date [...] any time in the past 12 m [facility], were you homeless or living in a correction (including now)? No 06/13/2024 Sex and Gender [...] Office Visit [facility] [address] [place] [address] Thiago Casas MD [address] [place] [address] documented as of this encounter Visit Diagnoses Not on filedocumented in this encounter Care Teams Credit Relationship Manager Relationship Specialty Start Date End Date Thiago Casas MD [address] [place] [phone] PCP - General Family Medicine 06/11/24 documented as of this encounter
--- OUTSIDE RECORDS SUMMARY | 2025-06-21 12:17 | XMS_ITS | Encounter Summary ---
Author Organization [facility] Address [address] [place] [address] Care Team Providers Care Tiger Machine Operator Name Role Phone Shaikh RICKY Gibson Unavailable [phone] Thiago Casas MD Primary Care Provider [phone] Anai Lam CLASSROOM COORDINATOR Unavailable [phone] Anai Lam CLASSROOM COORDINATOR Unavailable [phone] Encounter Details Date Type Department Care Team (Late st Contact Info) Description 07/04/2024 Clinisync Result Encounter [facility] Unsolicited [...] week 06/13/2024 How often do you attend [facility] or gnosticism services? More than 4 times per year 06/13/2024 Do you belong to any clubs o r organizations such as religious groups, unions, fraternal or athletic groups, or [...] Date Recorded Patient Health Questionnaire-2 Score 0 06/27/2024 [facility] - Occupational Stress Questionnaire Answer Date Recorded [...] any time in the past 12 m [facility], were you homeless or living in a residential (including now)? No 06/13/2024 Sex and Gender Information Value Date Recorded Sex Assigned at Not on file Legal Sex Male 9:46 PM EDT Gender Identity Not on file Sexual Orientation Not on file documented as of this encounter Plan of Treatment Upcoming Encounters Date Type Department Care Team (Late st Contact Info) Description 07/26/2025 10:30 AM EDT Office Visit [facility] [address] [place] [address] Thiago Casas MD [address] [place] [address] documented as of this encounter Procedures Procedure Name Priority Date/Time Associated Diagnosis Comments CA ECHO DOPPLER COMPLETE 07/04/2024 11:08 AM EDT documented in this encounter Results * CA ECHO DOPPLER COMPLETE (07/04/2024 11:08 AM EDT) Anatomical Region Laterality Modality Other 07/04/2024 11:0 8 AM EDT Narrative 07/04/2024 11:10 AM EDT [address] [address] Cardiology Report Signed Patient: YEFRI MONROY MR#: [id number] : 1960 Acct:[id number] Age/Sex: 63 / M ADM Date: 07/04/24 Loc: CARD Attending Dr: ANAI LAM Ordering Physician: ANAI LAM Date of Service: 07/04/24 Procedure(s): CA echo doppler complete Accession Number(s): [id number] cc: ANAI LAM Patient Name: YEFRI MONROY MR#: [id number] : 1960 Exam Date: 07/04/2024 Ordering Doctor: ANAI LAM ECHOCARDIOGRAM REPORT PROCEDURE: CA ECHO DOPPLER COMPLETE INDICATIONS: Bilateral lower extremity edema COMPARISON: None. DESCRIPTION: COMPLETE ECHOCARDIOGRAM Real-time transthoracic echocardiography with 2D, M-mode, spectral and color flow Doppler performed. QUALITY: Technical quality was good. LEFT VENTRICLE: Normal chamber size. Mild concentric left ventricular hypertrophy. Global left ventricular systolic function is normal. LV EF: Calculated left ventricular ejection fraction is 63%. DIASTOLIC: Normal diastolic function. ATRIAL SEPTUM: LEFT ATRIUM: Mild dilatation. RIGHT ATRIUM: Mild dilatation. RIGHT VENTRICLE: Borderline size. Normal right ventricular systolic function. TRICUSPID VALVE: Normal mobility and thickness. No stenosis with mild regurgitation. No evidence of pulmonary hypertension. RVSP 25 mmHg MITRAL VALVE: Normal mobility and thickness. No evidence of mitral valve stenosis. There is no mitral annular calcification. Trivial mitral regurgitation. AORTIC VALVE: Normal trileaflet appearance. Mildly calcified aortic valve. Normal leaflet mobility. No evidence of aortic valve stenosis. Trivial aortic regurgitation. AORTIC ROOT: Normal diameter and appearance. Mild dilatation of the ascending aorta measuring 3.8 cm. PULMONIC VALVE: Normal thickness and mobility. No stenosis. Trivial regurgitation. PERICARDIUM: No evidence of pericardial effusion. IVC: Collapses with inspirations. Normal size. PLEURA: CONCLUSION: 1. Mild concentric left ventricular hypertrophy with normal systolic function. LVEF is estimated at 60 to 65%. 2. Borderline right ventricular size with normal systolic function. 3. Mild biatrial dilatation. 4. Normal diastolic function. 5. No significant valvular dysfunction. 6. Normal right-sided pressures. 7. No pericardial effusion. 8. Mildly dilated ascending aorta measuring 3.8 cm. Adult Echocardiography Procedure Report Left Ventricle LVEDD (3.7 - 5.6 cm): 4.40 cm LVESD (2.2 - 4.0 cm): 2.97 cm LVIVS thickness (0.6 - 1.2 cm): 1.31 cm LVPW thickness (0.5 - 1.0 cm): 1.25 cm e': 0.11 m/s E - e': 5.58 LVOT Max Gradient: 4.03 mm[Hg] LVOT Area (cm2): 1.00 m/s Peak Velocity (LVOT): 1.00 m/s Mean Velocity (LVOT): 0.69 m/s LVOT Diameter 2.09 cm Left Ventricular Ejection Fraction: 62.52 % Left Atrium LA Volume Index (2D A2C): 38.51 ml/m2 Left Atrium Systolic Dimension: 4.22 cm Mitral Valve MV E to A Ratio: 1.16 Mitral Valve A-Wave Peak Velocity: 0.52 m/s Mitral Valve E-Wave Peak Velocity: 0.60 m/s Right Ventricle RV Internal Diastolic Dimension: 3.65 cm Aorta AO Root Diam: 3.64 cm Ascending Ao Diam: 3.84 cm Aortic Valve AoV Area (Peak Fred): 2.38 cm2, 2.38 cm2 AoV Area (VTI): 2.43 cm2, 2.43 cm2 Peak Velocity(Antegrade Flow): 1.44 m/s Peak Gradient(Antegrade Flow): 8.30 mm[Hg] Mean Velocity(Antegrade Flow): 0.99 m/s Mean Gradient(Antegrade Flow): 4.51 mm[Hg] Velocity Time Integral: 34.18 cm Tricuspid Valve Peak Velocity (Regurgitant Flow): 2.02 m/s, 2.05 m/s, 2.35 m/s Pulmonic Valve Mean Gradient: 2.38 mm[Hg] Mean Velocity: 0.73 m/s Peak Velocity: 1.05 m/s, 0.99 m/s Peak Gradient: 3.93 mm[Hg], 4.39 mm[Hg] Right Atrium Right Atrium Systolic Pressure: 58.30 ml, 58.30 ml Dictated by: Gene Hall M.D. on 07/04/2024 at 11:05 Approved by: Gene Hall M.D. on 07/04/2024 at 11:08 Dictated By: GENE HALL Signed By: 07/04/24 1110 DD/ 1108 TD/TT: Sausage Inspector: Procedure Note Radiology, Radiologist, - 07/04/2024 [place] [address] Cardiology Report Signed Patient: GALKENZIEYEFRI TMR#: [id number] : 1960cct:[id number] Age/Sex: 63 / MADM Date: 07/04/24 Loc: CARD Attending Dr: ANAI LAM Ordering Physician: NAAI LAM Date of Service: 07/04/24 Procedure(s): CA echo doppler complete Accession Number(s): [id number] cc: ANAI LAM Patient Name: YEFRI MONROY MR#: [id number] : 1960 Exam Date: 07/04/2024 Ordering Doctor: ANAI LAM ECHOCARDIOGRAM REPORT PROCEDURE: CA ECHO DOPPLER COMPLETE INDICATIONS: Bilateral lower extremity edema COMPARISON: None. DESCRIPTION: COMPLETE ECHOCARDIOGRAM Real-time transthoracic echocardiography with 2D, M-mode, spectral and color flow Dopplerperformed. QUALITY: Technical quality was good. LEFT VENTRICLE: Normal chamber size. Mild concentric left ventricular hypertrophy. Global left ventricular systolic function is normal. LV EF: Calculated left ventricular ejection fraction is 63%. DIASTOLIC: Normal diastolic function. ATRIAL SEPTUM: LEFT ATRIUM: Mild dilatation. RIGHT ATRIUM: Mild dilatation. RIGHT VENTRICLE: Borderline size. Normal right ventricular systolic function. TRICUSPID VALVE: Normal mobility and thickness. No stenosis with mild regurgitation. No evidence of pulmonary hypertension. RVSP 25 mmHg MITRAL VALVE: Normal mobility and thickness. No evidence of mitralvalve stenosis. There is no mitral annular calcification. Trivial mitral regurgitation. AORTIC VALVE: Normal trileaflet appearance. Mildly calcified aorticvalve. Normal leaflet mobility. No evidence of aortic valve stenosis. Trivial aortic regurgitation. AORTIC ROOT: Normal diameter and appearance. Mild dilatation of the ascending aorta measuring 3.8 cm. PULMONIC VALVE: Normal thickness and mobility. No stenosis. Trivial regurgitation. PERICARDIUM: No evidence of pericardial effusion. IVC: Collapses with inspirations. Normal size. PLEURA: CONCLUSION: 1. Mild concentric left ventricular hypertrophy with normal systolicfunction. LVEF is estimated at 60 to 65%. 2. Borderline right ventricular size with normal systolic function. 3. Mild biatrial dilatation. 4. Normal diastolic function. 5. No significant valvular dysfunction. 6. Normal right-sided pressures. 7. No pericardial effusion. 8. Mildly dilated ascending aorta measuring 3.8 cm. Adult Echocardiography Procedure Report Left Ventricle LVEDD (3.7 - 5.6 cm): 4.40 cm LVESD (2.2 - 4.0 cm): 2.97 cm LVIVS thickness (0.6 - 1.2 cm): 1.31 cm LVPW thickness (0.5 - 1.0 cm): 1.25 cm e': 0.11 m/s E - e': 5.58 LVOT Max Gradient: 4.03 mm[Hg] LVOT Area (cm2): 1.00 m/s Peak Velocity (LVOT): 1.00 m/s Mean Velocity (LVOT): 0.69 m/s LVOT Diameter 2.09 cm Left Ventricular Ejection Fraction: 62.52 % Left Atrium LA Volume Index (2D A2C): 38.51 ml/m2 Left Atrium Systolic Dimension: 4.22 cm Mitral Valve MV E to A Ratio: 1.16 Mitral Valve A-Wave Peak Velocity: 0.52 m/s Mitral Valve E-Wave Peak Velocity: 0.60 m/s Right Ventricle RV Internal Diastolic Dimension: 3.65 cm Aorta AO Root Diam: 3.64 cm Ascending Ao Diam: 3.84 cm Aortic Valve AoV Area (Peak Fred): 2.38 cm2, 2.38 cm2 AoV Area (VTI): 2.43 cm2, 2.43 cm2 Peak Velocity(Antegrade Flow): 1.44 m/s Peak Gradient(Antegrade Flow): 8.30 mm[Hg] Mean Velocity(Antegrade Flow): 0.99 m/s Mean Gradient(Antegrade Flow): 4.51 mm[Hg] Velocity Time Integral: 34.18 cm Tricuspid Valve Peak Velocity (Regurgitant Flow): 2.02 m/s, 2.05 m/s, 2.35 m/s Pulmonic Valve Mean Gradient: 2.38 mm[Hg] Mean Velocity: 0.73 m/s Peak Velocity: 1.05 m/s, 0.99 m/s Peak Gradient: 3.93 mm[Hg], 4.39 mm[Hg] Right Atrium Right Atrium Systolic Pressure: 58.30 ml, 58.30 ml Dictated by: Gene Hall M.D. on 07/04/2024 at 11:05 Approved by: Gene Hall M.D. on 07/04/2024 at 11:08 Dictated By: GENE HALL Signed By:07/04/24 1110 DD/ 1108 TD/TT: Sausage Inspector: Anai Lam CLASSROOM COORDINATOR [facility] Final Result documented in this encounter Visit Diagnoses Not on filedocumented in this encounter Care Teams Tiger Machine Operator Relationship Specialty Start Date End Date Shaikh Gibson MD [address] [place] [id number] PCP - [employer] 11/07/2309/06 Thiago Casas MD [address] [place] [phone] PCP - General Family Medicine 06/11/24 Anai Lam NP PCP - [employer] 09/07/2411/06 Anai Lam NP [address] [place] [phone] Nurse Practitioner Family Medicine 06/11/24 01/23/25 documented as of this encounter
--- OUTSIDE RECORDS SUMMARY | 2025-06-21 12:17 | XMS_ITS | Clinical Summary ---
Author Organization [facility] Address [address], [address] [place] [address] Care Team Providers Care Television Maintenance Worker Name Role Phone Ramses Bundy MD Primary Care Provider [phone] Allergies No known active allergies Medications warfarin (COUMADIN) 10 MG tablet Take 10 mg by mouth daily Active fluticasone-salm eterol (ADVAIR HFA) 115-21 MCG/ACT inhaler Inhale 2 puffs into the lungs 2 times daily Active omeprazole (PRILOSEC) 20 MG capsule Take 20 mg by mouth daily Active Social History Tobacco Use Types Packs/Day Years Used Date Smoking Tobacco: Never Alcohol Use Standard Drinks/Week Comments Yes 0 (1 standard drink = 0.6 oz pur e alcohol) socially Sex and Gender Information Value Date Recorded Sex Assigned at Not on file Legal Sex Male 3:56 PM EST Gender Identity Not on file Sexual Orientation Not on file Last Filed Vital Signs Vital Sign Reading Time Taken Comments Blood Pressure 124/82 06/22/2015 11:22 AM EDT Pulse 60 06/22/2015 11:22 AM EDT Temperature 36.8 C (98.2 F) 06/22/2015 11:22 AM EDT Respiratory Rate 16 06/22/2015 11:22 AM EDT Oxygen Saturation 97% 06/22/2015 11:22 AM EDT Inhaled Oxygen Concentration - - Weight 99.8 kg (220 lb) 06/22/2015 11:22 AM EDT Height 174 cm (5' 8.5 ) 06/22/2015 11:22 AM EDT Body Mass Index 32.96 06/22/2015 11:22 AM EDT Plan of Treatment Not on file Insurance [place] Care Teams Television Maintenance Worker Relationship Specialty Start Date End Date Ramses Bundy MD [address] [place] [address] PCP - General 06/07/15
--- OUTSIDE RECORDS SUMMARY | 2025-06-21 12:17 | XMS_ITS | Encounter Summary ---
Author Organization [facility] Address [address] [place] [address] Care Team Providers Care Incising Machine Operator Name Role Phone Thiago Casas MD Primary Care Provider [phone] Encounter Details Date Type Department Care Team (Late st Contact Info) Description 05/28/2025 Orders Only [facility] [address] [facility] [address] [place] [address] Edmundo Ratliff, DO [address] [facility] [address] [place] [address] Social History Tobacco Use Types Packs/Day Years [...] week 06/13/2024 How often do you attend [facility] or jewish services? More than 4 times per year 06/13/2024 Do you belong to any clubs o r organizations such as nondenominational groups, unions, fraternal or athletic groups, or [...] Score 0 07/26/2024 [facility] - Occupational Stress Questionnaire Answer Date [...] any time in the past 12 m [facility], were you homeless or living in a group home (including now)? No 06/13/2024 Sex and Gender [...] Office Visit [facility] [address] [place] [address] Thiago Casas MD [address] [place] [phone] documented as of this encounter Procedures Procedure Name Priority Date/Time Associated Diagnosis Comments HM COLONOSCOPY Routine 05/27/2025 10:33 AM EDT documented in this encounter Results * Hm Colonoscopy (05/27/2025 10:33 AM EDT) Anatomical Region Laterality Modality Other Edmundo Ratliff DO HEALTH MAINTENANCE Final Result documented in this encounter Visit Diagnoses Not on filedocumented in this encounter Care Teams Incising Machine Operator Relationship Specialty Start Date End Date Thiago Casas MD [address] [place] [phone] PCP - General Family Medicine 06/11/24 documented as of this encounter
--- OUTSIDE RECORDS SUMMARY | 2025-06-21 12:17 | XMS_ITS | Clinical Summary ---
Author Organization [facility] Healthcare Address [address] [place] [address] Care Team Providers Care Ict Developer Name Role Phone Thiago Casas MD Primary Care Provider [phone] Allergies Active Allergy Reactions Criticality Noted Date Comments Mite (D. Farinae) Runny nose 05/08/2025 Medications ferrous gluconate (Fergon) 324 (38 Fe) MG tabletIndications: Iron deficiency anemia, unspecified iron deficiency anemia type Take 1 tablet (324 mg) by mouth in the morning. Take with meals. 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) Take 1 tablet (10 mg) by mouth 1 (one) time each day 90 tablet 3 04/23/20 25 026 Active sildenafil (Viagra) 50 MG tabletIndications: Erectile dysfunction, unspecified erectile dysfunction type Take 1 tablet (50 mg) by mouth Daily as needed for erectile dysfunction 90 tablet 3 04/23/20 25 026 Active rosuvastatin (Crestor) 10 MG tabletIndications: Hyperlipidemia, unspecified hyperlipidemia type Take 1 tablet (10 mg) by mouth Daily 90 tablet 3 04/23/20 25 Active losartan (Cozaar) 25 MG tabletIndications: 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) Take 1 tablet (25 mg) by mouth Daily 90 tablet 04/23/20 Active fluticasone (Flonase) 50 MCG/ACT nasal sprayIndications:M oderate persistent asthma without complication (HCC) USE 2 SPRAYS IN EACH NOSTRIL DAILY 29.7 mL 04/24/20 25 Active omeprazole (PriLOSEC) [address] capsuleIndications :Gastroesophageal reflux disease without esophagitis Take 1 capsule (20 mg) by mouth in the morning. Take before meals. Do not crush or chew. 90 capsule 3 04/25/20 25 Active Fluticasone-Salmet ayad (Advair Diskus) 500-50 MCG/ACT aerosol powderIndications: Moderate persistent asthma without complication (HCC) Inhale 1 puff in the morning. 60 each 04/25/20 Active Active Problems Problem Noted Date Diagnosed Date Special screening for malignant neoplasms, colon 05/08/2025 Iron deficiency anemia 02/20/2025 Left ventricular hypertrophy 01/24/2025 Class 3 severe obesity due t o excess calories with serious comorbidity and body mass index (BMI) of 40.0 to 44.9 in adult 01/24/2025 Assessment & Plan (01/24/2025 9:33 AM EDT): Weight loss indicated. Mild ascending aorta dilatation 07/26/2024 Assessment & Plan (07/26/2024 12:05 PM EDT): Echo done on 07/04/24- showed mildly dilated ascending aorta measuring 3.8. Referral sent to Cardiology- Pt sees Cardiology August 24. Iron deficiency anemia due to chronic blood loss 06/27/2024 Assessment & Plan (01/24/2025 9:32 AM EDT): Will monitor labs. Assessment & Plan (06/27/2024 2:03 PM EDT): Ordered anemia panel. Venous insufficiency 06/13/2024 Assessment & Plan (01/24/2025 9:32 AM EDT): Edema controlled with compression stockings. Assessment & Plan (07/28/2024 10:29 AM EDT): DVT scan WNL. Labs all WNL. Echo done on 07/04/24- showed mildly dilated ascending aorta measuring 3.8. Referral sent to Cardiology- Pt sees Cardiology August 24. Slightly anemic, started on ferrous gluconate. Is still present today but not nearly as bad. +1 edema noted, but improved from last OV. Is wearing compression socks now. Has been trying to decrease sodium intake. Discussed DASH diet; Will refer to vein clinic or initiate Furosemide. Assessment & Plan (06/27/2024 2:03 PM EDT): DVT scan at last visit. Labs all WNL. Will check TSH. Discussed DASH diet; Ordered Echo preemptively ( denies orthopnea, sob,chest pain) If swelling continues will consider adding hydrochlorothiazide 12.5mg Assessment & Plan (06/13/2024 3:43 PM EDT): Bilateral DVT scan ordered. Lab work ordered. Complete Today! MARINA (obstructive sleep apnea) 03/22/2024 Assessment & Plan (03/22/2024 9:53 AM EDT): Uses CPAP. Moderate persistent asthma without complication 03/22/2024 Assessment & Plan (01/24/2025 9:32 AM EDT): Symptoms controlled with advair and continue. Use albuterol PRN. Assessment & Plan (10/18/2024 2:36 PM EST): Feels symptoms are well controlled, but recently ran out of Advair. Needs refill today. Sent refill to [facility] and to mail in order pharmacy. Pt states he has not used rescue inhaler in quite sometime. Has not had any recent exacerbations or hospitalizations. Assessment & Plan (03/22/2024 9:53 AM EDT): Well controlled on Advair. No recent exacerbations. Has not used albuterol in a while Recurrent acute deep vein th rombosis (DVT) of left lower extremity 03/22/2024 Assessment & Plan (06/13/2024 3:42 PM EDT): Bilateral DVT scan ordered. Assessment & Plan (03/22/2024 9:53 AM EDT): On coumadin. Would like to stay on it. Discussed use of DOACS. Prediabetes 03/22/2024 Assessment & Plan (03/22/2024 9:54 AM EDT): Last A1C 6.4 --> Discussed lifestyle measures. Recheck Dyslipidemia 03/22/2024 Assessment & Plan (01/24/2025 9:33 AM EDT): Repeat labs next visit. Assessment & Plan (10/18/2024 2:34 PM EST): Currently taking Rosuvastatin Denies any myalgias. Continue current regimen. Assessment & Plan (03/22/2024 9:54 AM EDT): On crestor. Anticoagulated on Coumadin 03/22/2024 Assessment & Plan (03/22/2024 9:54 AM EDT): On coumadin for recurrent DVT Erectile dysfunction 03/22/2024 Assessment & Plan (03/22/2024 9:54 AM EDT): Uses viagra as needed. Works well for him. C/w same Encounters Date Type Department Care Team Description 06/17/2025 Telephone [facility] [address] [place] [address] Thiago Casas MD 06/06/2025 10:15 AM EDT Office Visit [facility] [address] [facility] [address] [place] [address] Edmundo Ratliff, DO Special screening for malignant neoplasms, colon (Primary Dx); Iron deficiency anemia, unspecified iron deficiency anemia type 05/28/2025 Orders Only [facility] [address] [place] [address] [address] [place] [address] Edmundo Ratliff, DO 05/27/2025 Bamboo flowsheet [facility] [address] [place] [address] [address] [place] [address] Edmundo Ratliff, DO 05/27/2025 Travel 05/09/2025 Travel 05/08/2025 3:00 PM EDT Office Visit [facility] [address] [place] [address] [address] [place] [address] Edmundo Ratliff, DO Special screening for malignant neoplasms, colon (Primary Dx) 05/08/2025 Travel 05/07/2025 [facility] [address] [place] [address] Thiago Casas MD 05/07/2025 Travel 05/02/[address] [facility] [address] [place] [address] Thiago Casas MD 04/25/[address] [facility] [address] [place] [address] Thiago Casas MD Gastroesophageal reflux disease without esophagitis; 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); Moderate persistent asthma without complication (HCC) 04/24/[address] [facility] [address] [place] [address] Thiago Casas MD Moderate persistent asthma without complication (HCC) 04/23/[address] [facility] [address] [place] [address] Thiago Casas MD Erectile dysfunction, unspecified erectile dysfunction type; Hyperlipidemia, unspecified hyperlipidemia type ; Gastroesophageal reflux disease without esophagitis; Moderate persistent asthma without complication (HCC); 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) 04/19/[address] [facility] [address] [place] [address] Thiago Casas MD Gastroesophageal reflux disease without esophagitis 03/22/2025 Travel 03/21/[address] [facility] [address] [place] [id number] Thiago Casas MD Hyperlipidemia, unspecified hyperlipidemia type from Last 3 Months Immunizations Immunization Administration Dates Next Due Influenza, injectable, MDCK, quadrivalent 2018 Influenza, injectable, quadrivalent 08/16/2022,1 ,06/22/2017 Influenza, injectable, quadr ivalent, preservative free 09/04/2015 Influenza, recombinant, quad rivalent, injectable, preservative free 09/06/2020 Influenza, seasonal, injectable 07/30/2014 Novel [id number], preservative-free 09/04 Family History Medical History Relation Name Comments Stroke Father Neto Monroy Relation Name Status Comments Brother 4 brothers Father Neto Monroy Mother Sister 3 sisters Social History Tobacco Use Types Packs/Day Years Used Date Smoking Tobacco: Never Passive Smoke Exposure: Never Smokeless Tobacco: Never Tobacco Cessation:Counseling Given: Not Answered Alcohol Use Standard Drinks/Week Comments Yes 0 [...] 06/13/2024 How often do you attend chur or denominational services? More than 4 times per year 06/13/2024 Do you belong to any clubs o r organizations such as jew groups, unions, fraternal or athletic groups, or [...] Recorded Patient Health Questionnaire-2 Score 0 07/26/2024 [facility] - Occupational Stress Questionnaire Answer Date [...] any time in the past 12 m [facility], were you homeless or living in a chcf (including now)? No 06/13/2024 Sex and Gender Information Value Date Recorded Sex Assigned at Not on file Legal Sex Male 9:46 PM EDT Gender Identity Not on file Sexual Orientation Not on file Last Filed Vital Signs Vital Sign Reading Time Taken Comments Blood Pressure 122/80 05/08/2025 3:03 PM EDT Pulse 86 01/24/2025 8:57 AM EDT Temperature 36.4 C (97.5 F) 01/24/2025 8:57 AM EDT Respiratory Rate 20 01/24/2025 8:57 AM EDT Oxygen Saturation 97% 01/24/2025 8:57 AM EDT Inhaled Oxygen Concentration - - Weight 113 kg (249 lb) 05/08/2025 3:03 PM EDT Height 170.2 cm (5' 7 ) 05/08/2025 3:03 PM EDT Body Mass Index 39 05/08/2025 3:03 PM EDT Plan of Treatment Upcoming Encounters Date Type Department Care Team (Late st Contact Info) Description 07/26/2025 10:30 AM EDT Office Visit [facility] [address] [place] [address] Thiago Casas MD [address] [place] [address] Health Maintenance Due Date Last Done Comments CT Colonography 1958 FIT-DNA 1958 FIT 1958 FOBT 1960 Sigmoidoscopy 1960 Pneumococcal Vaccine: 65+ Ye ars (1 of 2 - PCV) 1977 Influenza Vaccine (#1) 2025 4, 08/16/2022, 08/11/2022, Additional history exists Colonoscopy 05/27/2035 05/27/2025, 07/0 01/2025, 12/09/2014 Colorectal Cancer Screening 05/27/2035 Procedures Procedure Name Priority Date/Time Associated Diagnosis Comments COLONOSCOPY Routine 05/27/2025 10:33 AM EDT from Last 3 Months Results * Colonoscopy (05/27/2025 10:33 AM EDT) Anatomical Region Laterality Modality Other Edmundo Ratliff DO HEALTH MAINTENANCE Final Result from Last [address] [place] [address] [facility] Care Teams Ict Developer Relationship Specialty Start Date End Date Thiago Casas MD [address] [place] [address] PCP - General Family Medicine 06/11/24
--- OUTSIDE RECORDS SUMMARY | 2025-06-21 12:20 | XMS_ITS | CCD ---
Author Organization [facility] Inform ion Partnership [facility] Care Team Providers Care Social Sciences Professor Name Role Phone FAWWAD, TOMAS H Attending [...] Attending Unavailable HOY .DR MARTIN Consulting Unavailable HOJohn .DR MARTIN Admitting Unavailable MISC, DR PADILLA Primary Care Unavailable MISC, DR PADILLA Primary Care Unavailable FAWWAD, TOMAS H Attending Unavailable FAWWAD, TOMAS H Admitting Unavailable FAWWAD, TOMAS H Attending Unavailable MISC, DR PADILLA Primary Care Unavailable FAWWAD, TOMAS H Admitting Unavailable FAWWAD, TOMAS H Attending Unavailable MISC, DR DOCTOR Primary Care Unavailable FAWWAD, TOMAS H Admitting Unavailable MAXWELL OWENS Attending Unavailable Shaikh Gibson MD Unavailable Thiago Nath MD Primary Care Provider Destiny METALIZING MACHINE OPERATOR, Anai Unavailable Destiny METALIZING MACHINE OPERATOR, Anai Unavailable Destiny METALIZING MACHINE OPERATOR, Anai Unavailable THIAGO NATH Attending Unavailable EDMUNDO GOMEZ Attending Unavailable DIXON, ANAI Attending Unavailabl e DIXON, ANAI Attending Unavailabl e DIXON, ANAI Attending Unavailabl e ITZKOANAND, EDMUNDO Blake Attending Unavailable DIXON, ANAI Attending Unavailabl e Allergies Allergy Classification Reported Allergen(s) Allergy Type Date of Onset Reaction(s) Facility (1 source) HOUSE DUST MITE; Translations: [HOUSE DUST MITE] Propensity to adverse reactions to drug (disorder) 4 [facility] Repository (5 sources) MITE EXTRACT Drug Allergy 5 Runny nose [facility] Work Phone: Medications Current Medications Medication Drug Class(es) Dates Sig (Normalized) Sig (Original) [id number] 200 actuat albuterol 0.09 mg/actuat metered dose inhaler (20 sources) beta2-Adrenergic Agonist Start: 03-19-2025 take 1 puff(s) by inhalation every four hours albuterol HFA 90 mcg/act inhaler Indications: Moderate persistent asthma without complication (HCC) Inhale 1 puff every 4 (four) hours if needed for shortness of breath 18 g 2 03/19/2025 Active Start: 12-24-2024 End: 12-24-2024 take 1 puff(s) by inhalation every four hours albuterol HFA 90 mcg/act inhaler Indications: Moderate persistent asthma without complication (CMS/HCC) Inhale 1 puff every 4 (four) hours if needed for shortness of breath 18 g 2 12/24/2024 Active ferrous gluconate 324 mg oral tablet (19 sources) Start: 06-30-2024 End: 06-30-2025 take 1 tablet by mouth at mealtime ferrous gluconate (Fergon) 324 (38 Fe) MG tablet Indications: Iron deficiency anemia, unspecified iron deficiency anemia type Take 1 tablet (324 mg) by mouth in the morning. Take with meals. 30 tablet 11 06/30/2024 06/30/2025 Active fluticasone propionate 0.05 mg/actuat metered dose nasal spray (20 sources) Corticosteroid Start: 04-24-2025 take 2 spray(s) nasal route once daily fluticasone (Flonase) 50 MCG/ACT nasal spray Indications: Moderate persistent asthma without complication (HCC) USE 2 SPRAYS IN EACH NOSTRIL DAILY 29.7 mL 3 04/24/2025 Active Start: 06-16-2023 take 2 spray(s) nasa l route once daily fluticasone (Flonase) 50 MCG/ACT nasal spray Administer 2 sprays into each nostril Daily 06/16/2023 Active 60 actuat fluticasone propionate 0.5 mg/actuat / salmeterol 0.05 mg/actuat dry powder inhaler (20 sources) Corticosteroid, beta2-Adrenergic Agonist Start: 04-25-2025 End: 04-25-2026 take 1 puff(s) by inhalation in the morning Fluticasone-Salmeterol (Advair Diskus) 500-50 MCG/ACT aerosol powder Indications: Moderate persistent asthma without complication (HCC) Inhale 1 puff in the morning. 60 each 04/25/2025 04/25/2026 Active Start: 10-18-2024 End: 10-22-2024 take 1 puff(s) by inhalation in the morning Fluticasone-Salmeterol (Advair Diskus) 500-50 MCG/ACT aerosol powder Indications: Moderate persistent asthma without complication (CMS/HCC) Inhale 1 puff in the morning. 60 each 10/22/2024 Active take 1 puff(s) by in halation in the morning Fluticasone-Salmeterol (Advair Diskus) 500-50 MCG/ACT aerosol powder Inhale 1 puff in the morning. 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 Take before meals. Do not crush or chew. 90 capsule 3 04/25/2025 Active Start: 01-23-2024 take 1 capsule by mo uth before mealtime omeprazole (PriLOSEC) [address] capsule Indications: Gastroesophageal reflux disease without esophagitis TAKE 1 CAPSULE BY MOUTH IN THE MORNING TAKE BEFORE MEALS 90 capsule 3 01/23/2024 Active rosuvastatin calcium 10 mg oral tablet (20 sources) HMG-CoA Reductase Inhibitor Start: 04-23-2025 End: 04-23-2026 take 1 tablet by mouth once daily rosuvastatin (Crestor) 10 MG tablet Indications: Hyperlipidemia, unspecified hyperlipidemia type Take 1 tablet (10 mg) by mouth Daily 90 tablet 3 04/23/2025 04/23/2026 Active Start: 06-04-2024 End: 04-16-2025 take 1 tablet by mouth once daily rosuvastatin (Crestor) 10 MG tablet Indications: Hyperlipidemia, unspecified hyperlipidemia type (CMS/HCC) Take 1 tablet (10 mg) by mouth Daily 90 tablet 1 10/18/2024 04/16/2025 Active sildenafil 50 mg oral tablet (20 sources) Phosphodiesterase 5 Inhibitor Start: 04-23-2025 End: 04-23-2026 take 1 tablet by mouth once daily as needed sildenafil (Viagra) 50 MG tablet Indications: Erectile dysfunction, unspecified erectile dysfunction type Take 1 tablet (50 mg) by mouth Daily as needed for erectile dysfunction 90 tablet 3 04/23/2025 04/23/2026 Active Start: 03-22-2024 End: 03-22-2025 take 1 tablet by mouth once daily as needed sildenafil (Viagra) 50 MG tablet Indications: Erectile dysfunction, unspecified erectile dysfunction type Take 1 tablet (50 mg) by mouth Daily as needed for erectile dysfunction 90 tablet 3 03/22/2024 03/22/2025 Active warfarin sodium 10 mg oral tablet (20 sources) Vitamin K Antagonist Start: 04-23-2025 End: 04-23-2026 take 1 tablet by mouth once daily warfarin (Coumadin) 10 MG tablet Indications: 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) Take 1 tablet (10 mg) by mouth 1 (one) time each day 90 tablet 3 04/23/2025 04/23/2026 Active take 1 tablet by mouth once darien y warfarin (Coumadin) 10 MG tablet Take 10 mg by mouth Daily Active Problems Active Problems Problem Classification Problem Date Documented Da te Episodic/Chronic Aortic; peripheral; and visceral artery aneurysms (20 sources) Aortic ectasia, unspecified site; Translations: [Ascending aorta dilatation] Onset: 4 Chronic Asthma (20 sources) Uncomplicated moderate persistent asthma; Translations: [Moderate persistent asthma, uncomplicated] Onset: 4 03-22-2024 Chronic Deficiency and other anemia (11 sources) Iron deficiency anemia due to blood loss; Translations: [Iron deficiency anemia secondary to blood loss (chronic)] Onset: 4 01-24-2025 Chronic Deficiency and other anemia (8 sources) Iron deficiency anemia; Translations: [Iron deficiency anemia, unspecified] Onset: 5 06-30-2024 Episodic Disorders of lipid metabolism (20 sources) Hyperlipidemia; Translations: [Hyperlipidemia, unspecified] Onset: 4 03-22-2024 Chronic Other aftercare (5 sources) Encounter for therapeutic drug level monitoring; Translations: [ENC THERAPEUTC DRUG LEVL MONITORING] Onset: 3 Episodic Other aftercare (1 source) [facility] (current) use of anticoagulants; Translations: [FCI CURRNT USE ANTICOAGULANTS] Onset: 3 Episodic Other and ill-defined heart disease (7 sources) Left ventricular hypertrophy; Translations: [Cardiomegaly] Onset: 5 01-24-2025 Chronic Other male genital disorders (20 sources) Male erectile dysfunction, unspecified; Translations: [Impotence of organic origin] Onset: 4 03-22-2024 Chronic Other nutritional; endocrine; and metabolic disorders (9 sources) Severe obesity; Translations: [Class 3 severe obesity due to excess calories with serious comorbidity and body mass index (BMI) of 40.0 to 44.9 in adult ([facility])] Onset: 5 01-24-2025 Chronic Other screening for suspected conditions (not mental disorders or infectious disease) (13 sources) Abnormal electrocardiogram [ECG] [EKG]; Translations: [Patient encounter status] Onset: 4 Episodic Phlebitis; thrombophlebitis and thromboembolism (1 source) Chronic embolism and thrombosis of 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; Translations: [CHR EMB THROMB UNS DP VNS LT LW EXT] Onset: 2 Chronic Residual codes; unclassified (20 sources) Obstructive sleep apnea syndrome; Translations: [Obstructive sleep apnea (adult) (pediatric)] Onset: 4 03-22-2024 Chronic Past or Other Problems Problem Classification Problem Date Documented Da te Episodic/Chronic Deficiency and other anemia (17 sources) Anemia; Translations: [Anemia, unspecified] Onset: 06-27-2024 06-27-2024 Episodic Diabetes mellitus without complication (20 sources) Prediabetes; Translations: [Prediabetes] Onset: 03-22-2024 03-22-2024 Episodic Other aftercare (20 sources) Anticoagulant effect; 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] Onset: 03-22-2024 03-22-2024 Episodic Other diseases of veins and lymphatics (9 sources) Vascular insufficiency; Translations: [Venous insufficiency (chronic) (peripheral)] Onset: 06-13-2024 01-24-2025 Episodic Phlebitis; thrombophlebitis and thromboembolism (20 sources) Acute embolism and thrombosis of 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; Translations: [Deep venous thrombosis of lower extremity] Onset: 02-07-2023 Episodic Residual codes; unclassified (20 sources) Bilateral lower limb edema; Translations: [Localized edema] Onset: 06-13-2024 06-13-2024 Episodic Unclassified (2 sources) Patient encounter status 01-24-2025 Results Test Name Value Interpretation Reference Range Facil ity ALL BASIC METABOLIC PANELon 08-30-2024 Anion gap [Moles/Vol] 13.6 mmol/L [facility] Calcium [Mass/Vol] 8.6 mg/dL 8.5 - 10.1 mg/dL [facility] Chloride [Moles/Vol] 106 mmol/L 98 - 107 mmol/L [facility] CO2 [Moles/Vol] 26.8 mmol/L 21.0 - 32.0 mmol/L [facility] Creatinine [Mass/Vol] 1.15 mg/dL 0.70 - 1.30 mg/dL [facility] GFR/1.73 sq M.predicted CKD-EPI (S/P/Bld) [Vol rate/Area] >60 >=60 mL/min/1.73m 2 [facility] Glucose [Mass/Vol] 94 mg/dL 74 - 106 mg/dL [facility] Potassium [Moles/Vol] 4.4 mmol/L 3.5 - 5.1 mmol/L [facility] Sodium [Moles/Vol] 142 mmol/L 136 - 145 [facility] EGFR-NON AF MALTESE >60 >=60 mL/min/1.73m 2 [facility] Urea nitrogen [Mass/Vol] 17 mg/dL 7.0 - 18.0 mg/dL [facility] Urea nitrogen/Creatinin e [Mass ratio] 14.8 mg/mg [facility] Office Visiton 08-22-2024 Follow-up visit [id number] Yefri Monroy 1960 M Date Provider Department Center 08/22/2024 [facility] Family History Problem Relation Age of Onset No Known Problems Mother Stroke Father Family Status - Relation Status Age at Mother Father Level of Service:49464 AR OFFICE/OUTPATIENT NEW MODERATE MDM 45 MINUTES Normal [facility] TSH W/REFLEX T4on 06-27-2024 TSH Qn 2.761 m[IU]/L [facility] Health care [facility] Vital Signs Date Time Vital Sign Value Performing Clinician Josemanuel acuna 05-08-2025 15:03-0400 Body height 170.2 cm Edmundo Gomez DO Work Phone: [facility] 05-08-2025 15:03-0400 Body mass index (BMI) [Ratio] 39 kg/m2 Edmundo Itzkowitz DO Work Phone: [facility] 05-08-2025 15:03-0400 Body weight 112.95 kg Edmundo Itzkowitz DO Work Phone: [facility] 05-08-2025 15:03-0400 Diastolic blood pressure 80 mm[Hg] Edmundo Itzkowitz DO Work Phone: [facility] 05-08-2025 15:03-0400 Systolic blood pressure 122 mm[Hg] Edmundo Itzkowitz DO Work Phone: [facility] 01-24-2025 08:57-0400 Body height 170.2 cm Thiago Nath MD Work Phone: [facility] 01-24-2025 08:57-0400 Body mass index (BMI) [Ratio] 40.25 kg/m2 Thiago Nath MD Work Phone: [facility] 01-24-2025 08:57-0400 Body temperature 97.5 [degF] Thiago Nath MD Work Phone: [facility] 01-24-2025 08:57-0400 Body weight 116.57 kg Thiago Nath MD Work Phone: [facility] 01-24-2025 08:57-0400 Diastolic blood pressure 76 mm[Hg] Thiago Nath MD Work Phone: [facility] 01-24-2025 08:57-0400 Heart rate 86 /min Thiago Nath MD Work Phone: [facility] 01-24-2025 08:57-0400 Respiratory rate 20 /min Thiago Nath MD Work Phone: [facility] 01-24-2025 08:57-0400 SaO2% (BldA) [Mass fraction] 97 % Thiago Nath MD Work Phone: [facility] 01-24-2025 08:57-0400 Systolic blood pressure 134 mm[Hg] Thiago Nath MD Work Phone: [facility] 10-18-2024 14:13-0500 Body height 170.2 cm Anai Dixon METALIZING MACHINE OPERATOR Work Phone: [facility] 10-18-2024 14:13-0500 Body mass index (BMI) [Ratio] 38.45 kg/m2 Anai Dixon METALIZING MACHINE OPERATOR Work Phone: [facility] 10-18-2024 14:13-0500 Body temperature 97.5 [degF] Anai Dixon METALIZING MACHINE OPERATOR Work Phone: [facility] 10-18-2024 14:13-0500 Body weight 111.36 kg Anai Dixon METALIZING MACHINE OPERATOR Work Phone: [facility] 10-18-2024 14:13-0500 Diastolic blood pressure 72 mm[Hg] Anai Dixon METALIZING MACHINE OPERATOR Work Phone: [facility] 10-18-2024 14:13-0500 Heart rate 85 /min Anai Dixon METALIZING MACHINE OPERATOR Work Phone: [facility] 10-18-2024 14:13-0500 Respiratory rate 16 /min Anai Dixon METALIZING MACHINE OPERATOR Work Phone: [facility] 10-18-2024 14:13-0500 SaO2% (BldA) [Mass fraction] 97 % Anai Dixon METALIZING MACHINE OPERATOR Work Phone: [facility] 10-18-2024 14:13-0500 Systolic blood pressure 118 mm[Hg] Anai Dixon METALIZING MACHINE OPERATOR Work Phone: [facility] 07-26-2024 11:47-0400 Body height 170.2 cm Anai Dixon METALIZING MACHINE OPERATOR Work Phone: [facility] 07-26-2024 11:47-0400 Body mass index (BMI) [Ratio] 38.37 kg/m2 Anai Dixon METALIZING MACHINE OPERATOR Work Phone: [facility] 07-26-2024 11:47-0400 Body temperature 97.7 [degF] Anai Dixon METALIZING MACHINE OPERATOR Work Phone: [facility] 07-26-2024 11:47-0400 Body weight 111.13 kg Anai Dixon METALIZING MACHINE OPERATOR Work Phone: [facility] 07-26-2024 11:47-0400 Diastolic blood pressure 86 mm[Hg] Anai Dixon METALIZING MACHINE OPERATOR Work Phone: [facility] 07-26-2024 11:47-0400 Heart rate 64 /min Anai Dixon METALIZING MACHINE OPERATOR Work Phone: [facility] 07-26-2024 11:47-0400 SaO2% (BldA) [Mass fraction] 96 % Anai Dixon METALIZING MACHINE OPERATOR Work Phone: [facility] 07-26-2024 11:47-0400 Systolic blood pressure 110 mm[Hg] Anai Dixon METALIZING MACHINE OPERATOR Work Phone: [facility] 06-27-2024 10:04-0400 Body height 170.2 cm Anai Dixon METALIZING MACHINE OPERATOR Work Phone: [facility] 06-27-2024 10:04-0400 Body mass index (BMI) [Ratio] 39.63 kg/m2 Anai Dxion METALIZING MACHINE OPERATOR Work Phone: [facility] 06-27-2024 10:04-0400 Body temperature 97.5 [degF] Anai Dixon METALIZING MACHINE OPERATOR Work Phone: [facility] 06-27-2024 10:04-0400 Body weight 114.76 kg Anai Dixon METALIZING MACHINE OPERATOR Work Phone: [facility] 06-27-2024 10:04-0400 Diastolic blood pressure 86 mm[Hg] Anai Dixon METALIZING MACHINE OPERATOR Work Phone: [facility] 06-27-2024 10:04-0400 Heart rate 83 /min Anai Diazpatrick METALIZING MACHINE OPERATOR Work Phone: [facility] Comment on above: 98% O2 06-27-2024 10:04-0400 Systolic blood pressure 108 mm[Hg] Anai Diazpatrick METALIZING MACHINE OPERATOR Work Phone: [facility] Encounters Encounter Date Encounter Type Care Provider Facility Start: 06-06-2025 End: 06-06-2025 Postop follow up visit related to original px Edmundo H Itzkowitz DO Work Phone: [facility] Comment on above: Special screening fo r malignant neoplasms, colon (Primary Dx); Iron deficiency anemia, unspecified iron deficiency anemia type Start: 05-27-2025 End: 05-27-2025 Bamboo flowsheet Edmundo H Itzkowitz DO Work Phone: [facility] Start: 05-27-2025 End: 05-27-2025 Bamboo flowsheet Edmundo H Itzkowitz DO Work Phone: [facility] Start: 05-27-2025 End: 05-27-2025 ambulatory EDMUNDO H ITZKOWITZ Not Available Start: 05-08-2025 End: 05-08-2025 ambulatory EDMUNDO H ITZKOWITZ Not Available Start: 05-08-2025 End: 05-08-2025 Office outpatient new 30 minutes Edmundo H Itzkowitz DO Work Phone: [facility] Comment on above: Special screening fo r malignant neoplasms, colon (Primary Dx) Start: 01-24-2025 End: 01-24-2025 Bamboo flowsheet Thiago Nath MD Work Phone: [facility] Start: 01-24-2025 End: 01-24-2025 Bamboo flowsheet Thiago Nath MD Work Phone: [facility] Start: 01-24-2025 End: 01-24-2025 ambulatory THIAGO NATH Not Available Start: 01-24-2025 End: 01-24-2025 Office outpatient visit 25 minutes Thiago Nath MD Work Phone: [facility] Comment on above: Moderate persistent asthma without complication (CMS/HCC) (Primary Dx); Venous insufficiency; Colon cancer screening; Iron deficiency anemia due to chronic blood loss; Class 3 severe obesity due to excess calories with serious comorbidity and body mass index (BMI) of 40.0 to 44.9 in adult (CMS/HCC); Dyslipidemia (CMS/HCC) Start: 12-24-2024 End: 12-24-2024 Orders Only Anai Dixon METALIZING MACHINE OPERATOR Work Phone: [facility] Comment on above: Moderate persistent asthma without complication (CMS/HCC) (Primary Dx) Start: 10-22-2024 End: 10-22-2024 Refill Ayleen Wagner MA [facility] Comment on above: Moderate persistent asthma without complication (CMS/HCC) Start: 10-18-2024 End: 10-18-2024 ambulatory ANAI RAMIREZTRICK Not Available Start: 10-18-2024 End: 10-18-2024 Bamboo flowsheet Anai Dixon METALIZING MACHINE OPERATOR Work Phone: [facility] Start: 10-18-2024 End: 10-18-2024 Bamboo flowsheet Anai Dixon METALIZING MACHINE OPERATOR Work Phone: [facility] Start: 10-18-2024 End: 10-18-2024 Office outpatient visit 15 minutes Anai Ramireztrick METALIZING MACHINE OPERATOR Work Phone: [facility] Comment on above: Moderate persistent asthma without complication (CMS/HCC) (Primary Dx); Hyperlipidemia, unspecified hyperlipidemia type (CMS/HCC) Start: 08-30-2024 End: 08-30-2024 [facility] Result Encounter Generic External Data Provider [facility] Department Unsolicited Start: 08-30-2024 End: 08-30-2024 [facility] Result Encounter Generic External Data Provider [facility] External Department Unsolicited Start: 08-22-2024 End: 08-22-2024 ambulatory [facility] Start: 07-26-2024 End: 07-26-2024 Bamboo flowsheet Anai Dixon METALIZING MACHINE OPERATOR Work Phone: [facility] Start: 07-26-2024 End: 07-26-2024 Bamboo flowsheet Anai Lockettzpatrick METALIZING MACHINE OPERATOR Work Phone: [facility] Start: 07-26-2024 End: 07-26-2024 ambulatory ANAI DIXON Not Available Start: 07-26-2024 End: 07-26-2024 Office outpatient visit 15 minutes Anai Dixon METALIZING MACHINE OPERATOR Work Phone: [facility] Comment on above: Mild ascending aorta dilatation (CMS/HCC) (Primary Dx); Bilateral leg edema Start: 07-16-2024 End: 07-16-2024 Orders Only Anai Dixon METALIZING MACHINE OPERATOR Work Phone: [facility] Comment on above: Dilation of descendi ng aorta (CMS/HCC) (Primary Dx) Start: 06-30-2024 End: 06-30-2024 Refill Anai Dixon METALIZING MACHINE OPERATOR Work Phone: [facility] Comment on above: Iron deficiency anem ia, unspecified iron deficiency anemia type (Primary Dx) Start: 06-27-2024 End: 06-27-2024 Bamboo flowsheet Anai Dixon METALIZING MACHINE OPERATOR Work Phone: [facility] Start: 06-27-2024 End: 06-27-2024 [facility] Result Encounter Anai Dixon METALIZING MACHINE OPERATOR Work Phone: [facility] Unsolicited Start: 06-27-2024 End: 06-27-2024 [facility] Result Encounter Anai Dixon METALIZING MACHINE OPERATOR Work Phone: [facility] Unsolicited Start: 06-27-2024 End: 06-27-2024 ambulatory ANAI DIXON Not Available Start: 06-27-2024 End: 06-27-2024 Office outpatient visit 15 minutes Anai Dixon METALIZING MACHINE OPERATOR Work Phone: [facility] Comment on above: Bilateral leg edema (Primary Dx); Anemia, unspecified type Start: 06-13-2024 End: 06-13-2024 ambulatory ANAI DIXON Not Available Start: 03-07-2023 End: 04-06-[address] DOCTOR BRANTLEY Facility:[facility] Start: 02-07-2023 End: 03-04-2023 ambulatory TOMAS H FAWWAD Facility:[facility] Start: 01-05-2023 End: 02-04-2023 ambulatory TOMAS H FAWWAD Facility:[facility] Start: 12-08-2022 End: 01-05-2023 ambulatory TOMAS H FAWWAD Facility:[facility] Start: 11-08-2022 End: 12-08-2022 ambulatory TOMAS H FAWWAD Facility:[facility] Start: 10-07-2022 End: 11-07-2022 ambulatory TOMAS H FAWWAD Facility:[facility] Start: 09-07-2022 End: 10-06-2022 ambulatory TOMAS Hayden FAWWAD Facility:[facility] Start: 08-18-2022 End: 08-18-[address] VERONICA PINEDA . Facility:[facility] Start: 08-08-2022 End: 09-06-[address] DOCTOR BRANTLEY Facility:[facility] Start: 07-08-2022 End: 08-07-[address] DOCTOR BRANTLEY Facility:[facility] Start: 06-07-2022 End: 07-07-[address] DOCTOR BRANTLEY Facility:[facility] Start: 05-07-2022 End: 06-04-2022 ambulatory TOMAS Hayden FAWWATrevor Facility:[facility] Procedures Date Procedure Procedure Detail Performing Clinician Start: 05-27-2025 Colonoscopy Edmundo It zkowitz DO Work Phone: Start: 05-09-2025 Colonoscopy Edmundo It zkowitz DO Work Phone: Start: 08-30-2024 ALL BASIC METABOLIC PANEL Generic External Data Provider Start: 06-27-2024 TSH W/REFLEX T4 Gopal Dixon METALIZING MACHINE OPERATOR Work Phone: Start: 12-09-2014 Colonoscopy Anai iyer METALIZING MACHINE OPERATOR Work Phone: Plan of Treatment Date Care Activity Detail Author Start: 05-27-2035 Screening for malign ant neoplasm of colon [facility] Start: 05-09-2035 Screening for malign ant neoplasm of colon [facility] Start: 07-26-2025 End: 07-26-2025 Patient encounter procedure 07/26/2025 10:30 AM EDT Office Visit [facility] [address] [place] [phone] Thiago Nath MD [address] [place] [phone] [facility] Start: 07-08-2025 Influenza vaccination Influenza Vacc ine (#1) [facility] Start: 01-24-2025 End: 01-24-2025 Patient encounter procedure [facility] Start: 12-09-2024 Screening for malign ant neoplasm of colon [facility] Start: 10-25-2024 End: 10-25-2024 Patient encounter procedure 10/25/2024 11:30 AM EST Office Visit [facility] [address] [place] [phone] Anai Dixon NP [address] [place] [phone] [facility] Start: 09-27-2024 End: 09-27-2024 Patient encounter procedure 09/27/2024 1:00 PM EST Office Visit [facility] [address] [place] [phone] Shaikh Gibson MD [address] [place] [phone] [facility] Start: 07-26-2024 End: 07-26-2024 Patient encounter procedure 07/26/2024 11:30 AM EDT Office Visit [facility] [address] [place] [phone] Anai Dixon NP [address] [place] [phone] [facility] Start: 07-08-2024 Influenza vaccination Influenza Vacc ine (#1) [facility] Start: 06-27-2024 End: 06-27-2025 Cobalamin (Vitamin B12) [Mass/volume] in Serum or Plasma Vitamin B12 Lab Routine Anemia, unspecified type Expected: 06/27/2024 (Approximate), Expires: 06/27/2025 [facility] Comment on above: Expected: 06/27/2024 (Approximate), Expires: 06/27/2025 Start: 06-27-2024 End: 06-27-2026 Echocardiogram 2D complete Echocardiogram 2D complete Echocardiography Routine Bilateral leg edema Expected: 06/27/2024 (Approximate), Expires: 06/27/2026 [facility] Comment on above: Expected: 06/27/2024 (Approximate), Expires: 06/27/2026 Start: 06-27-2024 End: 06-27-2025 Ferritin [Mass/volume] in Serum or Plasma Ferritin Lab Routine Anemia, unspecified type Expected: 06/27/2024 (Approximate), Expires: 06/27/2025 [facility] Comment on above: Expected: 06/27/2024 (Approximate), Expires: 06/27/2025 Start: 06-27-2024 End: 06-27-2025 Iron + transferrin + TIBC Iron + transferrin + TIBC Lab Routine Anemia, unspecified type Expected: 06/27/2024 (Approximate), Expires: 06/27/2025 [facility] Comment on above: Expected: 06/27/2024 (Approximate), Expires: 06/27/2025 Start: 06-27-2024 End: 06-27-2025 TSH W/REFLEX TO FT4 TSH W/REFLEX TO FT4 Lab Routine Bilateral leg edema Expected: 06/27/2024 (Approximate), Expires: 06/27/2025 [facility] Work Phone: Comment on above: Expected: 06/27/2024 (Approximate), Expires: 06/27/2025 Start: 1977 Pneumococcal Vaccine : 65+ Years (1 of 2 - PCV) Pneumococcal Vaccine: 65+ Years (1 of 2 - PCV) [facility] Start: 1964 Pneumococcal Vaccine : 65+ Years (1 of 2 - PCV) Pneumococcal Vaccine: 65+ Years (1 of 2 - PCV) [facility] Start: 1958 Screening for malign ant neoplasm of colon [facility] Immunizations Immunization Date Immunization Notes Care Provider [facility] 08-21-2024 influenza virus vaccine, unspecified formulation Anai Dixon METALIZING MACHINE OPERATOR Work Phone: [facility] 08-16-2022 influenza, injectabl e, quadrivalent, contains preservative Anai Dixon METALIZING MACHINE OPERATOR Work Phone: [facility] 08-16-2022 influenza virus vaccine, unspecified formulation Anai Dixon METALIZING MACHINE OPERATOR Work Phone: [facility] 08-11-2022 influenza, injectabl e, quadrivalent, contains preservative Anai Dixon METALIZING MACHINE OPERATOR Work Phone: [facility] 09-06-2020 Seasonal, quadrivale nt, recombinant, injectable influenza vaccine, preservative free Anai Dixon METALIZING MACHINE OPERATOR Work Phone: [facility] 08-16-2019 Influenza, injectabl e, Madin Malinda Canine Kidney, quadrivalent with preservative Anai Dixon METALIZING MACHINE OPERATOR Work Phone: [facility] 06-22-2017 influenza, injectabl e, quadrivalent, contains preservative Anai Dixon METALIZING MACHINE OPERATOR Work Phone: [facility] 09-04-2015 influenza, injectabl e, quadrivalent, preservative free Anai Dixon METALIZING MACHINE OPERATOR Work Phone: [facility] 07-30-2014 influenza, seasonal, injectable Anai Dixon METALIZING MACHINE OPERATOR Work Phone: [facility] 09-04-2009 novel [id number], preservative-free, injectable Anai Dixon METALIZING MACHINE OPERATOR Work Phone: [facility] Payers Date Payer Category Payer Managed Care HMO (unspecified) [employer] [id number] 2024 Unknown [id number] 2022 [facility] [id number] 2022 Unknown 2022 Unknown [id number] 2019 Unknown [id number] 1959 Self-pay [id number] 1959 Self-pay 1958 Unknown [id number] 2.16.840.1.886148.3.579.2. 593 1958 Unknown [id number] 2.16.840.1.775798.3.579.2. 593 1958 Unknown [id number] 2.16.840.1.602390.3.579.2. 593 1958 Unknown [id number] 2.16.840.1.779249.3.579.2. 593 1958 Unknown [id number] 2.16.840.1.350977.3.579.2. 593 1958 Unknown [id number] 2.16.840.1.156597.3.579.2. 593 1958 Unknown [id number] 2.16.840.1.509214.3.579.2. 593 1958 Unknown [id number] 2.16.840.1.194242.3.579.2. 593 1958 Unknown [id number] 2.16.840.1.832790.3.579.2. 593 1958 Unknown [id number] 2.16.840.1.939334.3.579.2. 593 1958 Unknown [id number] 2.16.840.1.064461.3.579.2. 593 1958 Unknown [id number] 2.16.840.1.930535.3.579.2. 1259 1958 Unknown [id number] 2.16.840.1.956324.3.579.2. 1259 1958 Unknown [id number] 2.16.840.1.749590.3.579.2. 1259 1958 Unknown [id number] 2.16.840.1.836220.3.579.2. 1259 1958 Unknown [id number] 2.16.840.1.131879.3.579.2. 1259 1958 Unknown [id number] 2.16.840.1.228117.3.579.2. 1259 1958 Unknown [id number] 2.16.840.1.020320.3.579.2. 1259 Unknown [id number] 2.16.840.1.313854.3.579.2. 593 Social History Date Type Detail Facility Start: 03-22-2024 Tobacco smoking stat [facility] Never smoked tobacco [facility] Start: 03-22-2024 Tobacco use and exposure Smoke less tobacco non-user [facility] Start: 07-26-2024 End: 06-04-2025 Alcoholic beverage intake Current drinker of alcohol (finding) [facility] Start: 06-13-2024 End: 07-26-2024 History of Social function [facility] Start: 06-13-2024 End: 07-26-2024 [id number] Health Literacy [facility] How often do you nee d to have someone help you when you read instructions, pamphlets, or other written material from your doctor or pharmacy [SILS] Never [facility] Do you belong to any clubs or organizations such as mosque groups, unions, fraternal or athletic groups, or school groups? No [facility] Are you now , , , , never or living with a partner? [facility] How often to you hav e a drink containing alcohol? Monthly or less [facility] How many standard dr inks containing alcohol do you have on a typical day? 1 or 2 [facility] How often do you hav e 6 or more drinks on 1 occasion? Never [facility] Do you feel stress - tense, restless, nervous, or anxious, or unable to sleep at night because your mind is troubled all the time - these days [OSQ] Not at all [facility] (I/We) worried chyna er (my/our) food would run out before (I/we) got money to buy more. Never true [facility] Start: 03-22-2024 Alcohol Comment OCCASSIONALLY [facility] Start: 1960 Sex assigned at Not on file [facility] NEGATED: Highlighted rowStart: NINF History of tobacco use Passive smoker [facility] Clinical Notes 06-27-2024 to 05-27-2025 Edmundo Gomez DO - 06/06/2025 10:15 AM EDChidi Gomez DO - 05/08/2025 3:00 PM Maged Nath MD - 01/24/2025 9:33 AM Maged Nath MD - 01/24/2025 9:33 AM EDTPatient Instructions Note Date & Type Note Facility 05-27-2025 History of Present illness Narrative Images from the original note were not included. Yefri Monroy is a 64 y.o. male presents for 1st pow colonoscopy HPI: HPI Colonoscopy completed 05/27/25 OBJECTIVE: Physical Exam ASSESSMENT AND PLAN: Assessment/Plan Diagnoses and all orders for this visit: Special screening for malignant neoplasms, colon Iron deficiency anemia, unspecified iron deficiency anemia type Colonoscopy showed diverticulosis, he will need a repeat scope in 10 years documented in this encounter [facility] 05-08-2025 History of Present illness Narrative Images from the original note were not included. Yefri Monroy 1960 Yefri Monroy is a 64 y.o. male presents with chief complaint of Screening colonoscopy HPI: HPI Yefri presents to schedule a colonoscopy, his last one was 10 years ago. He has no GI issues. He has a history of DVT's x 4 events SUBJECTIVE: MEDICATIONS: ALLERGIES Current Outpatient Medications Medication Instructions albuterol HFA 90 mcg/act inhaler 1 puff, Inhalation, Every 4 hours PRN ferrous gluconate (FERGON) 324 mg, Oral, Daily with breakfast fluticasone (Flonase) 50 MCG/ACT nasal spray 2 sprays, Each Nostril, Daily Fluticasone-Salmeterol (Advair Diskus) 500-50 MCG/ACT aerosol powder 1 puff, Inhalation, Daily RT losartan (COZAAR) 25 mg, Oral, Daily omeprazole (PRILOSEC) 20 mg, Oral, Daily before breakfast, Do not crush or chew. rosuvastatin (CRESTOR) 10 mg, Oral, Daily sildenafil (VIAGRA) 50 mg, Oral, Daily PRN warfarin (COUMADIN) 10 mg, Oral, Daily Allergies Allergen Reactions Mite (D. Farinae) Runny nose PAST MEDICAL HISTORY: SOCIAL HISTORY SURGICAL HISTORY: Past Medical History: Diagnosis Date Allergic Asthma (HCC) DVT (deep venous thrombosis) (HCC) left calf x 4 times GERD (gastroesophageal reflux disease) MARINA (obstructive sleep apnea) uses CPAP machine Social History Tobacco Use Smoking status: Never Passive exposure: Never Smokeless tobacco: Never Vaping Use Vaping status: Never Used Substance Use Topics Alcohol use: Yes Comment: OCCASSIONALLY Drug use: Never Past Surgical History: Procedure Laterality Date COLONOSCOPY 2014 HERNIA REPAIR NASAL SEPTUM SURGERY 1986 OTHER STRABISMUS SURGERY Ligament repair in right ankle TONSILLECTOMY VASECTOMY FAMILY HISTORY Family History Problem Relation Name Age of Onset Stroke Father Neto Monroy REVIEW OF SYMPTOMS: Review of Systems Constitutional: Negative for activity change. HENT: Negative for hearing loss and voice change. Respiratory: Negative for shortness of breath. Cardiovascular: Negative for chest pain. Gastrointestinal: Negative for abdominal distention, diarrhea, nausea and vomiting. Neurological: Negative for dizziness, seizures and headaches. Psychiatric/Behavioral: Negative. All other systems reviewed and are negative. OBJECTIVE: Visit Vitals BP 122/80 Ht 5' 7 Wt 249 lb BMI 39.00 kg/m Smoking Status Never BSA 2.31 m Physical Exam Vitals reviewed. HENT: Head: Normocephalic. Eyes: Pupils: Pupils are equal, round, and reactive to light. Cardiovascular: Rate and Rhythm: Normal rate and regular rhythm. Pulmonary: Effort: Pulmonary effort is normal. Abdominal: General: Bowel sounds are normal. Palpations: Abdomen is soft. Musculoskeletal: General: Normal range of motion. Skin: General: Skin is warm. Neurological: General: No focal deficit present. Mental Status: He is alert. ASSESSMENT AND PLAN: Assessment/Plan Diagnoses and all orders for this visit: Special screening for malignant neoplasms, colon I explained the colonoscopy procedure in detail to the patient and discussed the risks and benefits including but not exclusive of bleeding, and perforation. I asked the patient not to drive, operate any machinery or make any important decisions on the day of the procedure. The patient is in agreement and arrangements for colonoscopy have been made. 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 I will hold the Coumadin for the procedure but place him on Lovenox for bridge therapy. (Rx provided to the patient) documented in this encounter [facility] 01-24-2025 History of Present illness Narrative Associated Problem(s): Dyslipidemia (CMS/HCC) Repeat labs next visit. Associated Problem(s): Class 3 severe obesity due to excess calories with serious comorbidity and body mass index (BMI) of 40.0 to 44.9 in adult (CMS/HCC) Weight loss indicated. Associated Problem(s): Venous insufficiency Edema controlled with compression stockings. Associated Problem(s): Moderate persistent asthma without complication (CMS/HCC) Symptoms controlled with advair and continue. Use albuterol PRN. Associated Problem(s): Iron deficiency anemia due to chronic blood loss Will monitor labs. Images from the original note were not included. Subjective Patient ID: Yefri Monroy is a 64 y.o. male who presents for Follow-up (3 m/Due for colonoscopy. ) and Knee Injury ([place] a pop when walking down stairs). Follow up asthma, edema, and anemia. Asthma controlled with advair. Typically no SOB or cough with exertion. Symptoms worse with URI symptoms and uses albuterol PRN. Able to stay active and exercise without symptoms. Edema improved with compression stockings. No swelling in feet or ankles. Wears stockings during day and works well to control anemia. History of recurrent DVT and on coumadin. Mild iron def anemia on last labs. Due for repeat colon cancer screening. Review of Systems Constitutional: Negative for fatigue. Respiratory: Negative for cough, shortness of breath and wheezing. Cardiovascular: Negative for chest pain and palpitations. Gastrointestinal: Negative for abdominal pain, diarrhea, nausea and vomiting. Genitourinary: Negative for dysuria. Objective Physical Exam Constitutional: General: He is not in acute distress. Appearance: Normal appearance. HENT: Head: Normocephalic. Right Ear: Tympanic membrane and ear canal normal. Left Ear: Tympanic membrane and ear canal normal. Eyes: Extraocular Movements: Extraocular movements intact. Pupils: Pupils are equal, round, and reactive to light. Cardiovascular: Rate and Rhythm: Normal rate and regular rhythm. Heart sounds: No murmur heard. No friction rub. No gallop. Pulmonary: Breath sounds: Normal breath sounds. No wheezing, rhonchi or rales. Abdominal: General: Bowel sounds are normal. There is no distension. Palpations: Abdomen is soft. Tenderness: There is no abdominal tenderness. There is no guarding or rebound. Musculoskeletal: Left lower leg: No edema. Neurological: Mental Status: He is alert. Assessment/Plan Problem List Items Addressed This Visit Moderate persistent asthma without complication (CMS/HCC) - Primary Symptoms controlled with advair and continue. Use albuterol PRN. Venous insufficiency Edema controlled with compression stockings. Iron deficiency anemia due to chronic blood loss Will monitor labs. Relevant Orders Ambulatory referral to General Surgery Other Visit Diagnoses Colon cancer screening Relevant Orders Ambulatory referral to General Surgery documented in this encounter [facility] 10-22-2024 Telephone encounter Note Pt called, this medication needed to be sent to [facility] not his home delivery company. He has been out for a week and did not want to wait to have it mailed to him. [facility] 10-22-2024 Miscellaneous Notes Pt called, this medication needed to be sent to [facility] not his home delivery company. He has been out for a week and did not want to wait to have it mailed to him. documented in this encounter [facility] 10-18-2024 History of Present illness Narrative Associated Problem(s): Moderate persistent asthma without complication (CMS/HCC) Feels symptoms are well controlled, but recently ran out of Advair. Needs refill today. Sent refill to [facility] and to mail in order pharmacy. Pt states he has not used rescue inhaler in quite sometime. Has not had any recent exacerbations or hospitalizations. Associated Problem(s): Hyperlipidemia (CMS/HCC) Currently taking Rosuvastatin Denies any myalgias. Continue current regimen. Images from the original note were not included. Subjective Patient ID: Yefri Monroy is a 64 y.o. male w ho presents for Follow-up. HPI Asthma: Feels symptoms are well controlled, but recently ran out of Advair. Needs refill today. Sent refill to [facility] and to mail in order pharmacy. Pt states he has not used rescue inhaler in quite sometime. Has not had any recent exacerbations or hospitalizations. HLD: Currently taking Rosuvastatin Denies any myalgias. Continue current regimen. Review of Systems Constitutional: Negative for activity change, appetite change, chills, diaphoresis, fatigue, fever and unexpected weight change. HENT: Negative for congestion, ear pain, rhinorrhea, sinus pressure, sinus pain, sneezing, sore throat, trouble swallowing and voice change. Eyes: Negative for visual disturbance. Respiratory: Negative for cough, chest tightness, shortness of breath and wheezing. Cardiovascular: Negative for chest pain, palpitations and leg swelling. Gastrointestinal: Negative for abdominal distention, abdominal pain, blood in stool, constipation, diarrhea and vomiting. Genitourinary: Negative for decreased urine volume, dysuria, flank pain, frequency, hematuria and urgency. Musculoskeletal: Negative for arthralgias, gait problem, joint swelling and myalgias. Skin: Negative for rash. Neurological: Negative for dizziness, tremors, syncope, weakness, light-headedness and headaches. Psychiatric/Behavioral: Negative for decreased concentration and suicidal ideas. The patient is not nervous/anxious. Hematological: Does not bruise/bleed easily. Endocrine: Negative for cold intolerance, heat intolerance, polydipsia, polyphagia and polyuria. Objective Physical Exam Vitals reviewed. Constitutional: Appearance: Normal appearance. HENT: Right Ear: Tympanic membrane normal. Left Ear: Tympanic membrane normal. Nose: Nose normal. Mouth/Throat: Mouth: Mucous membranes are moist. Pharynx: Oropharynx is clear. Eyes: Pupils: Pupils are equal, round, and reactive to light. Cardiovascular: Rate and Rhythm: Normal rate and regular rhythm. Pulses: Normal pulses. Heart sounds: Normal heart sounds. Pulmonary: Effort: Pulmonary effort is normal. Breath sounds: Normal breath sounds. Abdominal: General: Abdomen is flat. Bowel sounds are normal. Palpations: Abdomen is soft. Skin: Capillary Refill: Capillary refill takes less than 2 seconds. Neurological: Mental Status: He is alert and oriented to person, place, and time. Assessment/Plan Problem List Items Addressed This Visit Moderate persistent asthma without complication (CMS/HCC) - Primary Feels symptoms are well controlled, but recently ran out of Advair. Needs refill today. Sent refill to [facility] and to mail in order pharmacy. Pt states he has not used rescue inhaler in quite sometime. Has not had any recent exacerbations or hospitalizations. Relevant Medications Fluticasone-Salmeterol (Advair Diskus) 500-50 MCG/ACT aerosol powder Hyperlipidemia (CMS/HCC) Currently taking Rosuvastatin Denies any myalgias. Continue current regimen. Relevant Medications rosuvastatin (Crestor) 10 MG tablet documented in this encounter [facility] 08-22-2024 Note [facility] Cardiology Clinic Note Chief Complaint: Pt has no, chest pain, Palpatation, and sob.Pt is here for a referral of abnormal echo. HPI: Edward T Nitkiewicz is a 63 y.o. male here for a referral of abnormal echo 63-year-old with a history of multiple episodes of deep venous thrombosis of the left leg, currently on Coumadin, questionable history of hypertension, and dyslipidemia here to establish care He had gone to [place] in the spring and ever since has [...] time. Return to clinic in 6 months Maxwell Owens MD, MPH, [facility], [facility], [facility] Interventional Cardiology Pager Email: [email or web address] 07-26-2024 History of Present illness Narrative Associated Problem(s): Bilateral leg edema DVT scan WNL. Labs all WNL. Echo [...] refer to vein clinic or initiate Furosemide. Associated Problem(s): Mild ascending aorta dilatation (CMS/HCC) Echo done on 07/04/24- showed mildly dilated ascending aorta measuring 3.8. Referral sent to Cardiology- Pt sees Cardiology August 24. Images from the original note were not included. Subjective Patient ID: Yefri Monroy is a 63 y.o. male who presents for No chief complaint on file.. HPI Pt is here today for follow-up on bilateral leg edema Lab results showed an A1C of 6.5%- prediabtests slight anemia but otherwise unremarkable TSH and Iron panel ordered. Showed slight anemia Initiated Ferrous Gluconate 324mg; Will recheck in 6 months. Edema today: Is still present today but not nearly as bad. +1 edema noted, but improved from last OV. Is wearing compression socks now. Has been trying to decrease sodium intake. Denies shortness of breath Orthopnea Echo done on 07/04/24- showed mildly dilated ascending aorta measuring 3.8. Referral sent to Cardiology- Pt sees Cardiology August 24. Review of Systems Constitutional: Negative for activity change, appetite change, chills, diaphoresis, fatigue, fever and unexpected weight change. HENT: Negative for congestion, ear pain, rhinorrhea, sinus pressure, sinus pain, sneezing, sore throat, trouble swallowing and voice change. Eyes: Negative for visual disturbance. Respiratory: Negative for cough, chest tightness, shortness of breath and wheezing. Cardiovascular: Positive for leg swelling. Negative for chest pain and palpitations. Gastrointestinal: Negative for abdominal distention, abdominal pain, blood in stool, constipation, diarrhea and vomiting. Genitourinary: Negative for decreased urine volume, dysuria, flank pain, frequency, hematuria and urgency. Musculoskeletal: Negative for arthralgias, gait problem, joint swelling and myalgias. Skin: Negative for rash. Neurological: Negative for dizziness, tremors, syncope, weakness, light-headedness and headaches. Psychiatric/Behavioral: Negative for decreased concentration and suicidal ideas. The patient is not nervous/anxious. Hematological: Does not bruise/bleed easily. Endocrine: Negative for cold intolerance, heat intolerance, polydipsia, polyphagia and polyuria. Objective Physical Exam Vitals reviewed. Constitutional: Appearance: Normal appearance. HENT: Head: Normocephalic and atraumatic. Right Ear: Tympanic membrane normal. Left Ear: Tympanic membrane normal. Nose: Nose normal. Mouth/Throat: Mouth: Mucous membranes are moist. Pharynx: Oropharynx is clear. Eyes: Pupils: Pupils are equal, round, and reactive to light. Cardiovascular: Rate and Rhythm: Normal rate and regular rhythm. Pulses: Normal pulses. Heart sounds: Normal heart sounds. Pulmonary: Effort: Pulmonary effort is normal. Breath sounds: Normal breath sounds. Abdominal: General: Abdomen is flat. Bowel sounds are normal. Palpations: Abdomen is soft. Musculoskeletal: General: Normal range of motion. Cervical back: Normal range of motion. Right lower le+ Edema present. Left lower le+ Edema present. Skin: General: Skin is warm and dry. Capillary Refill: Capillary refill takes less than 2 seconds. Neurological: General: No focal deficit present. Mental Status: He is alert and oriented to person, place, and time. Psychiatric: Mood and Affect: Mood normal. Behavior: Behavior normal. Assessment/Plan Problem List Items Addressed This Visit Bilateral leg edema DVT scan WNL. Labs all WNL. Echo [...] refer to vein clinic or initiate Furosemide. Mild ascending aorta dilatation (CMS/HCC) - Primary Echo done on 07/04/24- showed mildly dilated ascending aorta measuring 3.8. Referral sent to Cardiology- Pt sees Cardiology August 24. documented in this encounter [facility] 06-27-2024 History of Present illness Narrative Associated Problem(s): Anemia Ordered anemia panel. Associated Problem(s): Bilateral leg edema DVT scan at last visit. Labs all WNL. Will check TSH. Discussed DASH diet; Ordered Echo preemptively ( denies orthopnea, sob,chest pain) If swelling continues will consider adding hydrochlorothiazide 12.5mg Images from the original note were not included. Subjective Patient ID: Yefri Monroy is a 63 y.o. male who presents for Results (REVIEW LAB RESULTS). HPI Pt is here today for follow-up on bilateral leg edema Lab results showed an A1C of 65.0- prediabtests Fslight anemia but otherwise unremarkable TSH and Iron panel ordered. Edema today: Is still present today but not nearly as bad. +1/+2 edema noted. Is not wearing compression socks Does state he has a high sodium diet Denies shortness of breath Orthopnea Review of Systems Constitutional: Negative for activity change, appetite change, chills, diaphoresis, fatigue, fever and unexpected weight change. HENT: Negative for congestion, ear pain, rhinorrhea, sinus pressure, sinus pain, sneezing, sore throat, trouble swallowing and voice change. Eyes: Negative for visual disturbance. Respiratory: Negative for cough, chest tightness, shortness of breath and wheezing. Cardiovascular: Negative for chest pain, palpitations and leg swelling. Gastrointestinal: Negative for abdominal distention, abdominal pain, blood in stool, constipation, diarrhea and vomiting. Genitourinary: Negative for decreased urine volume, dysuria, flank pain, frequency, hematuria and urgency. Musculoskeletal: Negative for arthralgias, gait problem, joint swelling and myalgias. Skin: Negative for rash. Neurological: Negative for dizziness, tremors, syncope, weakness, light-headedness and headaches. Psychiatric/Behavioral: Negative for decreased concentration and suicidal ideas. The patient is not nervous/anxious. Hematological: Does not bruise/bleed easily. Endocrine: Negative for cold intolerance, heat intolerance, polydipsia, polyphagia and polyuria. Objective Physical Exam Vitals reviewed. Constitutional: Appearance: Normal appearance. HENT: Head: Normocephalic and atraumatic. Right Ear: Tympanic membrane normal. Left Ear: Tympanic membrane normal. Nose: Nose normal. Mouth/Throat: Mouth: Mucous membranes are moist. Pharynx: Oropharynx is clear. Eyes: Pupils: Pupils are equal, round, and reactive to light. Cardiovascular: Rate and Rhythm: Normal rate and regular rhythm. Pulses: Normal pulses. Heart sounds: Normal heart sounds. Pulmonary: Effort: Pulmonary effort is normal. Breath sounds: Normal breath sounds. Abdominal: General: Abdomen is flat. Bowel sounds are normal. Palpations: Abdomen is soft. Musculoskeletal: General: Normal range of motion. Cervical back: Normal range of motion. Right lower le+ Edema present. Left lower le+ Edema present. Skin: General: Skin is warm and dry. Capillary Refill: Capillary refill takes less than 2 seconds. Neurological: General: No focal deficit present. Mental Status: He is alert and oriented to person, place, and time. Psychiatric: Mood and Affect: Mood normal. Behavior: Behavior normal. Assessment/Plan Problem List Items Addressed This Visit Bilateral leg edema - Primary DVT scan at last visit. Labs all WNL. Will check TSH. Discussed DASH diet; Ordered Echo preemptively ( denies orthopnea, sob,chest pain) If swelling continues will consider adding hydrochlorothiazide 12.5mg Relevant Orders TSH W/REFLEX TO FT4 Echocardiogram 2D complete Anemia Ordered anemia panel. Relevant Orders Vitamin B12 Ferritin Iron + transferrin + TIBC documented in this encounter [facility] 06-27-2024 Instructions Anai Dixon NP - 06/27/2024 10:00 AM EDT Have labwork completed Echocardiogram ordered. DASH stands for Dietary Approaches to Stop Hypertension. The DASH diet is a healthy-eating plan designed to help prevent or treat high blood pressure, also called hypertension. It also may help lower cholesterol linked to heart disease, called low density lipoprotein (LDL) cholesterol. High blood pressure and high LDL cholesterol levels are two major risk factors for heart disease and stroke. Foods in the DASH diet are rich in the minerals potassium, calcium and magnesium. The DASH diet focuses on vegetables, fruits and whole grains. It includes fat-free or low-fat dairy products, fish, poultry, beans and nuts. The diet limits foods that are high in salt, also called sodium. It also limits added sugar and saturated fat, such as in fatty meats and full-fat dairy products. DASH diet and sodium The standard DASH diet limits salt to 2,300 milligrams (mg) a day. That amount agrees with the Dietary Guidelines for Americans. That's about the amount of sodium in 1 teaspoon of table salt. A lower sodium version of DASH restricts sodium to 1,500 mg a day. You can choose the version of the diet that meets your health needs. If you aren't sure what sodium level is right for you, talk to your health care provider. DASH diet: What to eat The DASH diet is a balanced eating plan that gives choices of what to eat. The diet helps create a heart-healthy eating style for life. There's no need for special foods or drinks. Foods in the diet are at grocery stores and in most restaurants. When following DASH, it is important to choose foods that are: Rich in potassium, calcium, magnesium, fiber and protein. Low in saturated fat. Low in salt. DASH diet: Suggested servings The DASH diet provides daily and weekly nutritional goals. The number of servings depends on daily calorie needs. Here's a look at the recommended servings from each food group for a 2,128-pnlwaxo-u-day DASH diet: Grains: 6 to 8 servings a day. One serving may be 1/2 cup of cooked cereal, rice or pasta, 1 slice of bread or 1 ounce dry cereal. Vegetables: 4 to 5 servings a day. One serving is 1 cup raw leafy green vegetable, 1/2 cup cut-up raw or cooked vegetables, or 1/2 cup vegetable juice. Fruits: 4 to 5 servings a day. One serving is one medium fruit, 1/2 cup fresh, frozen or canned fruit, or 1/2 cup fruit juice. Fat-free or low-fat dairy products: 2 to 3 servings a day. One serving is 1 cup milk or yogurt, or 1 1/2 ounces cheese. Lean meats, poultry and fish: six 1-ounce servings or fewer a day. One serving is 1 ounce of cooked meat, poultry or fish, or 1 egg. Nuts, seeds, or dry beans and peas: 4 to 5 servings a week. One serving is 1/3 cup nuts, 2 tablespoons peanut butter, 2 tablespoons seeds, or 1/2 cup cooked dried beans or peas, also called legumes. Fats and oils: 2 to 3 servings a day. One serving is 1 teaspoon soft margarine, 1 teaspoon vegetable oil, 1 tablespoon mayonnaise or 2 tablespoons salad dressing. Sweets and added sugars: 5 servings or fewer a week. One serving is 1 tablespoon sugar, jelly or jam, 1/2 cup sorbet or 1 cup lemonade. DASH diet: Alcohol and caffeine Drinking too much alcohol can increase blood pressure. The Dietary Guidelines for Americans recommends that men limit alcohol to no more than two drinks a day and women to one or less. The DASH diet doesn't talk about caffeine. How caffeine affects blood pressure isn't clear. But caffeine can cause blood pressure to rise at least briefly. If you have high blood pressure or if you think caffeine affects your blood pressure, think about cutting down. You might talk to your health care provider about caffeine. Take aim at salt The foods at the center of the DASH diet are low in salt. So following the DASH diet is likely to lower salt intake. To further reduce salt: Read food labels and choose low-salt or [id number] options. Use salt-free spices or flavorings instead of salt. Don't add salt when cooking rice, pasta or hot cereal. Choose plain fresh or frozen vegetables. Choose fresh skinless poultry, fish and lean cuts of meat. Eat less restaurant food. When eating at restaurants, ask for dishes with less salt and ask not to have salt added to your order. As you cut back on processed, salty foods, you might notice that food tastes different. It can take time for your taste buds to adjust. But once they do, you might prefer the DASH way of eating. And you'll be healthier for it. Shortness of breath, weight gain >2 pounds in one day, chest pressure, cough, worsening swelling GO TO ER!!! documented in this encounter [facility] Evaluation note Diagnosis MARINA (obstructive sleep apnea)- Primary Obstructive sleep apnea (adult) (pediatric) Moderate persistent asthma without complication (CMS/HCC) Recurrent acute deep vein thrombosis (DVT) of left lower extremity (CMS/HCC) Prediabetes Other abnormal glucose Hyperlipidemia, unspecified hyperlipidemia type (CMS/HCC) Anticoagulated on Coumadin Erectile dysfunction, unspecified erectile dysfunction type Bilateral leg edema- Primary Edema Recurrent acute deep vein thrombosis (DVT) of left lower extremity (CMS/HCC) Bilateral leg edema- Primary Edema Anemia, unspecified type Mild ascending aorta dilatation (CMS/HCC)- Primary Bilateral leg edema Edema Moderate persistent asthma without complication (CMS/HCC)- Primary Hyperlipidemia, unspecified hyperlipidemia type (CMS/HCC) [facility]* Diagnosis MARINA (obstructive sleep apnea)- Primary Obstructive sleep apnea (adult) (pediatric) Moderate persistent asthma without complication (CMS/HCC) Recurrent acute deep vein thrombosis (DVT) of left lower extremity (CMS/HCC) Prediabetes Other abnormal glucose Hyperlipidemia, unspecified hyperlipidemia type (CMS/HCC) Anticoagulated on Coumadin Erectile dysfunction, unspecified erectile dysfunction type Bilateral leg edema- Primary Edema Recurrent acute deep vein thrombosis (DVT) of left lower extremity (CMS/HCC) Bilateral leg edema- Primary Edema Anemia, unspecified type Mild ascending aorta dilatation (CMS/HCC)- Primary Bilateral leg edema Edema Moderate persistent asthma without complication (CMS/HCC)- Primary Hyperlipidemia, unspecified hyperlipidemia type (CMS/HCC) Moderate persistent asthma without complication (CMS/HCC) [facility]* Diagnosis Bilateral leg edema- Primary Edema Anemia, unspecified type [facility]* Diagnosis Iron deficiency anemia, unspecified iron deficiency anemia type- Primary [facility]* Diagnosis Dilation of descending aorta (CMS/HCC)- Primary [facility]* Diagnosis Mild ascending aorta dilatation (CMS/HCC)- Primary Bilateral leg edema Edema [facility]* Diagnosis MARINA (obstructive sleep apnea)- Primary Obstructive sleep apnea (adult) (pediatric) Moderate persistent asthma without complication (CMS/HCC) Recurrent acute deep vein thrombosis (DVT) of left lower extremity (CMS/HCC) Prediabetes Other abnormal glucose Hyperlipidemia, unspecified hyperlipidemia type (CMS/HCC) Anticoagulated on Coumadin Erectile dysfunction, unspecified erectile dysfunction type Bilateral leg edema- Primary Edema Recurrent acute deep vein thrombosis (DVT) of left lower extremity (CMS/HCC) Bilateral leg edema- Primary Edema Anemia, unspecified type Mild ascending aorta dilatation (CMS/HCC)- Primary Bilateral leg edema Edema Moderate persistent asthma without complication (CMS/HCC)- Primary Hyperlipidemia, unspecified hyperlipidemia type (CMS/HCC) Moderate persistent asthma without complication (CMS/HCC)- Primary [facility]* Diagnosis MARINA (obstructive sleep apnea)- Primary Obstructive sleep apnea (adult) (pediatric) Moderate persistent asthma without complication (CMS/HCC) Recurrent acute deep vein thrombosis (DVT) of left lower extremity (CMS/HCC) Prediabetes Other abnormal glucose Hyperlipidemia, unspecified hyperlipidemia type (CMS/HCC) Anticoagulated on Coumadin Erectile dysfunction, unspecified erectile dysfunction type Bilateral leg edema- Primary Edema Recurrent acute deep vein thrombosis (DVT) of left lower extremity (CMS/HCC) Bilateral leg edema- Primary Edema Anemia, unspecified type Mild ascending aorta dilatation (CMS/HCC)- Primary Bilateral leg edema Edema Moderate persistent asthma without complication (CMS/HCC)- Primary Hyperlipidemia, unspecified hyperlipidemia type (CMS/HCC) Moderate persistent asthma without complication (CMS/HCC)- Primary Venous insufficiency Unspecified venous (peripheral) insufficiency Colon cancer screening Special screening for malignant neoplasms, colon Iron deficiency anemia due to chronic blood loss Iron deficiency anemia secondary to blood loss (chronic) Class 3 severe obesity due to excess calories with serious comorbidity and body mass index (BMI) of 40.0 to 44.9 in adult (CMS/HCC) Dyslipidemia (CMS/HCC) Other and unspecified hyperlipidemia documented in this encounter [facility]* Diagnosis MARINA (obstructive sleep apnea)- Primary Obstructive sleep apnea (adult) (pediatric) Moderate persistent asthma without complication (HCC) 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) Prediabetes Other abnormal glucose Hyperlipidemia, unspecified hyperlipidemia type Anticoagulated on Coumadin Erectile dysfunction, unspecified erectile dysfunction type Bilateral leg edema- Primary Edema 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) Bilateral leg edema- Primary Edema Anemia, unspecified type Mild ascending aorta dilatation- Primary Bilateral leg edema Edema Moderate persistent asthma without complication (HCC)- Primary Hyperlipidemia, unspecified hyperlipidemia type Moderate persistent asthma without complication (HCC)- Primary Venous insufficiency Unspecified venous (peripheral) insufficiency Colon cancer screening Special screening for malignant neoplasms, colon Iron deficiency anemia due to chronic blood loss Iron deficiency anemia secondary to blood loss (chronic) Class 3 severe obesity due to excess calories with serious comorbidity and body mass index (BMI) of 40.0 to 44.9 in adult (CMS-HCC) Dyslipidemia Other and unspecified hyperlipidemia Special screening for malignant neoplasms, colon- Primary [facility]* Diagnosis MARINA (obstructive sleep apnea)- Primary Obstructive sleep apnea (adult) (pediatric) Moderate persistent asthma without complication (HCC) 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) Prediabetes Other abnormal glucose Hyperlipidemia, unspecified hyperlipidemia type Anticoagulated on Coumadin Erectile dysfunction, unspecified erectile dysfunction type Bilateral leg edema- Primary Edema 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) Bilateral leg edema- Primary Edema Anemia, unspecified type Mild ascending aorta dilatation- Primary Bilateral leg edema Edema Moderate persistent asthma without complication (HCC)- Primary Hyperlipidemia, unspecified hyperlipidemia type Moderate persistent asthma without complication (HCC)- Primary Venous insufficiency Unspecified venous (peripheral) insufficiency Colon cancer screening Special screening for malignant neoplasms, colon Iron deficiency anemia due to chronic blood loss Iron deficiency anemia secondary to blood loss (chronic) Class 3 severe obesity due to excess calories with serious comorbidity and body mass index (BMI) of 40.0 to 44.9 in adult (CMS-HCC) Dyslipidemia Other and unspecified hyperlipidemia Special screening for malignant neoplasms, colon- Primary Iron deficiency anemia, unspecified iron deficiency anemia type [facility] Consultation (Routine) - Pending Review Specialty Diagnoses / Procedures Referred By Reji childs Referred To Contact Cardiology Diagnoses Dilation of descending aorta (CMS/HCC) Procedures [facility] HIGH MDM 60 MINUTES Anai Dixon NP [address] [place] [phone] Destin Hall MD [address] [place] [phone] Referral ID Status Reason Start Date Expiration Date Visits Requested Visits Authorized [id number] Pending Review Specialty Services Required 07/16/2024 01/12/2025 1 1 Scheduling Instructions Please include ECHO results and OV note. Thank you! [facility] Summary Purpose Family History No Family History Records FoundNo Family History Records FoundNo Family History Records Found Advance Directives No Advanced Directives Records FoundNo Advanced Directives Records FoundNo Advanced Directives Records Found Reason for Referral Specialty Diagnoses / Procedures Referred By Reji childs Referred To Contact Cardiology Diagnoses Bilateral leg edema Procedures Echocardiogram 2D complete Anai Dixon NP [address] [place] [address] Referral ID Status Reason Start Date Expiration Date Visits Requested Visits Authorized [id number] Pending Review Perform Procedure 06/27/2024 12/24/2024 1 1 Additional Source Comments (unrecognized sect ion and content) No Status Records FoundNo Status Records FoundNo Status Records Found INFORMATION SOURCE (unrecogn ized section and content) DATE CREATED AUTHOR 04/15/2023 [facility] DATE CREATED AUTHOR AUTHOR'S ORGANIZ ATION 08/24/2024 [facility] DATE CREATED AUTHOR AUTHOR'S ORGANIZ ATION 05/28/2025 [facility] dical Specialists EPIC Care Teams (unrecognized sec tion and content) Social Sciences Professor Relationship Specialty Start Date End Date Shaikh Gibson MD [address] [place] [phone] [facility]/07[facility]23 Thiago Nath MD [address] [place] [phone] PCP - General Family Medicine 06/11/24 Anai Dixon NP [address] [place] [address] Nurse Practitioner Family Medicine 06/11/24 Social Sciences Professor Relationship Specialty Start Date End Date Thiago Nath MD [address] [place] [address] PCP - General Family Medicine 06/11/24 Anai Dixon NP [address] [place] [address] PCP - [place] [employer] 09/07/24 Anai Dixon NP [address] [place] [address] Nurse Practitioner Family Medicine 06/11/24 Social Sciences Professor Relationship Specialty Start Date End Date Thiago Nath MD [address] [place] [phone] PCP - General Family Medicine 06/11/24 Anai Dixon NP [address] [place] [address] PCP - [employer] 09/07/24 Anai Dixon NP [address] [place] [address] Nurse Practitioner Family Medicine 06/11/24 Social Sciences Professor Relationship Specialty Start Date End Date Thiago Nath MD [address] [place] [phone] PCP - General Family Medicine 06/11/24 Anai Dixon NP [address] [place] [address] PCP - [employer] 09/07/24 Anai Dixon NP [address] [place] [address] Nurse Practitioner Family Medicine 06/11/24 Social Sciences Professor Relationship Specialty Start Date End Date Shaikh Gibson MD [address] [place] [phone] PCP - [place] [employer] 11/07/23 Thiago Nath MD [address] [place] [phone] PCP - General Family Medicine 06/11/24 Anai Dixon, KATHERINE [address] [place] [address] Nurse Practitioner Family Medicine 06/11/24 Social Sciences Professor Relationship Specialty Start Date End Date Shaikh Gibson MD [address] [place] [phone] PCP - [place] [employer] [employer] 11/07/23 Thiago Nath MD [address] [place] [phone] PCP - General Family Medicine 06/11/24 Anai Dixon, MET[employer]IZING MACHINE OPERATOR [address] [place] [address] Nurse Practitioner Family Medicine 06/11/24 Social Sciences Professor Relationship Specialty Start Date End Date Shaikh Gibson MD [address] [place] [phone] PCP - [place] [employer] 11/07/23 Thiago Nath MD [address] [place] [phone] PCP - General Family Medicine 06/11/24 Anai Dixon NP [address] [place] [address] Nurse Practitioner Family Medicine 06/11/24 Social Sciences Professor Relationship Specialty Start Date End Date Shaikh Gibson MD [address] [place] [phone] PCP - [employer] 11/07/23 Thiago Nath MD [address] [place] [address] PCP - General Family Medicine 06/11/24 Anai Dixon NP [address] [place] [address] Nurse Practitioner Family Medicine 06/11/24 Social Sciences Professor Relationship Specialty Start Date End Date Shaikh Gibson MD [address] [place] [phone] PCP - [place] [employer] 11/07/23 Thiago Nath MD [address] [place] [address] PCP - General Family Medicine 06/11/24 Anai Dixon NP [address] [place] [address] Nurse Practitioner Family Medicine 06/11/24 Social Sciences Professor Relationship Specialty Start Date End Date Shaikh Gbison MD [address] [place] [address] PCP - [place] [employer] 11/07/23 Thiago Nath MD [address] [place] [address] PCP - General Family Medicine 06/11/24 Anai Dixon, KATHERINE [address] [place] [address] Nurse Practitioner Family Medicine 06/11/24 Social Sciences Professor Relationship Specialty Start Date End Date Shaikh Gibson MD [address] [place] [phone] PCP - [place] [employer] [employer] 11/07/23 Thiago Nath MD [address] [place] [phone] PCP - General Family Medicine 06/11/24 Anai Dixon, KATHERINE [address] [place] [address] Nurse Practitioner Family Medicine 06/11/24 Social Sciences Professor Relationship Specialty Start Date End Date Thiago Nath MD [address] [place] [phone] PCP - General Family Medicine 06/11/24 Anai Dixon, KATHERINE [address] [place] [address] Nurse Practitioner Family Medicine 06/11/24 Social Sciences Professor Relationship Specialty Start Date End Date Thiago Nath MD [address] [place] [phone] PCP - General Family Medicine 06/11/24 Anai Dixon NP [address] [place] [address] Nurse Practitioner Family Medicine 06/11/24 Social Sciences Professor Relationship Specialty Start Date End Date Thiago Nath MD [address] [place] [phone] PCP - General Family Medicine 06/11/24 Anai Dixon NP [address] [place] [address] Nurse Practitioner Family Medicine 06/11/24 Social Sciences Professor Relationship Specialty Start Date End Date Thiago Nath MD [address] [place] [phone] PCP - General Family Medicine 06/11/24 Social Sciences Professor Relationship Specialty Start Date End Date Thiago Nath MD [address] [place] [phone] PCP - General Family Medicine 06/11/24 Social Sciences Professor Relationship Specialty Start Date End Date Thiago Nath MD [address] [place] [phone] PCP - General Family Medicine 06/11/24 Reason for Visit (unrecogniz ed section and content) Reason Comments Follow-up Reason Onset Date Comments Med Refill 10/22/2024 Reason Comments Results REVIEW LAB RESULTS Reason Comments Follow-up 3 mDue for colonosco py. Knee Injury [place] a pop when walk ing down stairs Reason Comments Screening colonoscopy Reason Comments 1st pow colonoscopy FOR RECORDS PERTAINING TO PATIENTS WHO ARE [...] BE BASED ON THE PRIMARY CLINICAL RECORDS. [facility]. provides no warranty or guarantee of the accuracy or completeness of information in this document.
--- NOTE | 2025-06-21 12:30 | CA_ITS ---
Patient Name: BISHOP RODRIGUEZ MR#: [id number] : 1960 Exam Date: 06/21/2025 Ordering Doctor: DR DELORIS TO M.D. ECHOCARDIOGRAM REPORT PROCEDURE: CA ECHO DOPPLER COMPLETE INDICATIONS: Aortic ectasia, hypertension COMPARISON: None. DESCRIPTION: COMPLETE ECHOCARDIOGRAM Real-time transthoracic echocardiography with 2D, M-mode, spectral and color flow Doppler performed. QUALITY: Technical quality was good. LEFT VENTRICLE: Normal chamber size. Mild concentric left ventricular hypertrophy. Estimated left ventricular ejection fraction is 60-65 %. LV EF: Normal left ventricular ejection fraction, (>55%). DIASTOLIC: Normal diastolic function. ATRIAL SEPTUM: Visually appears intact. LEFT ATRIUM: Normal chamber size. RIGHT ATRIUM: Mild dilatation. RIGHT VENTRICLE: Mild dilatation. Normal right ventricular systolic function. TRICUSPID VALVE: Normal mobility and thickness. No stenosis with trivial regurgitation. Doppler studies reveal mildly (35-45) elevated right sided pressures. RVSP 36 mmHg MITRAL VALVE: Normal mobility and thickness. No evidence of mitral valve stenosis. There is no mitral annular calcification. Trivial mitral regurgitation. AORTIC VALVE: Normal trileaflet appearance. Mildly calcified aortic valve. Normal leaflet mobility. No evidence of aortic valve stenosis. Trivial aortic regurgitation. AORTIC ROOT: Normal diameter and appearance, measuring 3.9 cm. Ascending aorta is normal in size, measuring 3.2 cm. PULMONIC VALVE: Normal thickness and mobility. No stenosis. Trivial regurgitation. PERICARDIUM: No evidence of pericardial effusion. IVC: Collapses with inspiration. PLEURA: CONCLUSION: 1. Mild concentric left ventricular hypertrophy with normal systolic function. Estimated LVEF is 60 to 65%. 2. Mildly dilated right ventricle with normal systolic function. 3. Normal diastolic function. 4. Mild right atrial dilatation. 5. No significant valvular dysfunction. 6. Mildly elevated right-sided pressures. Adult Echocardiography Procedure Report Left Ventricle LVEDD (3.7 - 5.6 cm): 4.83 cm LVESD (2.2 - 4.0 cm): 3.21 cm LVIVS thickness (0.6 - 1.2 cm): 1.30 cm LVPW thickness (0.5 - 1.0 cm): 1.05 cm e': 0.13 m/s E - e': 5.11 LVOT Max Gradient: 4.58 mm[Hg] LVOT Area (cm2): 1.07 m/s Peak Velocity (LVOT): 1.07 m/s Mean Velocity (LVOT): 0.77 m/s LVOT Diameter 2.11 cm Left Ventricular Ejection Fraction: 60-65 % Left Atrium Left Atrium Systolic Dimension: 4.62 cm Mitral Valve MV E to A Ratio: 0.99 Mitral Valve A-Wave Peak Velocity: 0.66 m/s Mitral Valve E-Wave Peak Velocity: 0.65 m/s Right Ventricle Aorta AO Root Diam: 3.91 cm Ascending Ao Diam: 3.23 cm Aortic Valve AoV Area (Peak Fred): 2.53 cm2, 2.53 cm2 AoV Area (VTI): 2.43 cm2, 2.43 cm2 Peak Velocity(Antegrade Flow): 1.48 m/s Peak Gradient(Antegrade Flow): 8.71 mm[Hg] Mean Velocity(Antegrade Flow): 1.01 m/s Mean Gradient(Antegrade Flow): 4.64 mm[Hg] Velocity Time Integral: 34.41 cm Tricuspid Valve Peak Velocity (Regurgitant Flow): 2.86 m/s Pulmonic Valve Peak Gradient: 4.11 mm[Hg], 4.40 mm[Hg] Right Atrium Right Atrium Systolic Pressure: 71.06 ml, 71.06 ml Dictated by: Destin Hall M.D. on 06/21/2025 at 22:21 Approved by: Destin Hall M.D. on 06/21/2025 at 22:25
== END 2025-06-21 12:15 | disposition home or self-care (01) ==
LOC: CARD 12:14
PROVIDERS: PCP Family Medicine; Visit Provider Internal Medicine Interventional Cardiology
DX: I77.819 Aortic ectasia, unspecified site (principal); R94.31 Abnormal electrocardiogram [ECG] [EKG]
CPT/HCPCS: 93306

== ENCOUNTER 2025-07-08 01:58 | Outpatient (RCR) | payer OTHER, SELFPAY | END 2025-08-06 15:37 | disposition home or self-care (01) | LOC: MM 01:58 | PROVIDERS: PCP Family Medicine; Visit Provider Internal Medicine | DX: Z51.81 Encounter for therapeutic drug level monitoring (principal); Z79.01 Long term (current) use of anticoagulants ==

== ENCOUNTER 2025-08-07 04:34 | Outpatient (RCR) | payer OTHER, SELFPAY | END 2025-09-06 23:59 | disposition home or self-care (01) | LOC: MM 04:34 | PROVIDERS: PCP Family Medicine; Visit Provider Internal Medicine | DX: Z51.81 Encounter for therapeutic drug level monitoring (principal); Z79.01 Long term (current) use of anticoagulants ==

== ENCOUNTER 2025-09-10 13:23 | Outpatient (RCR) | payer OTHER, SELFPAY | END 2025-10-06 23:59 | disposition home or self-care (01) | LOC: MM 13:23 | PROVIDERS: PCP Family Medicine; Visit Provider Family Medicine | DX: Z51.81 Encounter for therapeutic drug level monitoring (principal); Z79.01 Long term (current) use of anticoagulants; I82.409 Acute embolism and thrombosis of unspecified deep veins of unspecified lower extremity | CPT/HCPCS: 85610; G0463 ==

== ENCOUNTER 2025-10-07 11:31 | Outpatient (RCR) | payer OTHER, SELFPAY | END 2025-11-06 12:51 | disposition home or self-care (01) | LOC: MM 11:31 | PROVIDERS: PCP Family Medicine; Visit Provider Internal Medicine | DX: Z51.81 Encounter for therapeutic drug level monitoring (principal); Z79.01 Long term (current) use of anticoagulants; I82.409 Acute embolism and thrombosis of unspecified deep veins of unspecified lower extremity ==